=== PATIENT | female | born 1975 | race Caucasian/White ===

== ENCOUNTER → 2018-01-27 | Outpatient (CLI) | payer OTHER ==
--- NOTE | 2018-01-27 11:34 | KCIC ---
Barium esophagram History: Dysphagia for 2 to 3 weeks Comparison: None. Findings: Esophagram was performed. Overall caliber of the esophagus is within normal limits. No significant hiatal hernia was identified. No significant flow-limiting stricture was identified. There was transient incomplete relaxation of the lower esophageal sphincter, somewhat delayed passage of barium tablet through this region. Otherwise esophageal motility is within normal limits. There is scattered scattered mucosal irregularity of the esophagus. Fluoroscopy time: 1 minute 35 seconds, 46 images Impression: 1. There is some scattered mucosal irregularity of the esophagus suggestive of esophagitis. There is no significant hiatal hernia. There was incomplete relaxation of the lower esophageal sphincter. Electronically signed by: Paulie Sandoval MD (01/27/2018 11:30 AM) [facility]
== END | disposition home or self-care (01) ==
LOC: KCIC 07:40
PROVIDERS: ATTEND Internal Medicine Gastroenterology
DX: R13.10 Dysphagia, unspecified (principal)
CPT/HCPCS: 74220

== ENCOUNTER 2018-06-24 18:17 | Inpatient (IN) | payer OTHER ==
[~2018-06-24] VITALS: Ht 170.2 cm; Wt 106.2 kg
[2018-06-24] MEDS ORDERED: fentaNYL PF VIAL 100 MCG/2 ML VIAL IV ONE ×2 (19:00→23:30)
[2018-06-24] MEDS ORDERED: IV NORMAL SALINE 1000ML BAG 1,000 ML IV ONE (19:00)
[2018-06-24] MEDS ORDERED: ONDANSETRON PF 4 MG/2 ML VIAL. IV ONE (19:00)
[2018-06-24] MEDS ORDERED: DICYCLOMINE 20 MG/2 ML AMPUL. IM ONE (19:00)
[2018-06-24 19:22] LABS: BASO # 0.1 x10^3/uL (0.0-0.2); BASO % 1 % (0-3); EOS # 0.2 x10^3/uL (0.0-0.7); EOS % 2 % (0-3); HEMATOCRIT 40.7 % (36.0-47.0); HEMOGLOBIN 13.6 g/dL (12.0-15.5); LYMPH # 0.7 x10^3/uL (1.0-4.8); LYMPH % 6 % (24-48); MEAN CORPUSCULAR HEMOGLOBIN 33 pg (25-35); MEAN CORPUSCULAR HGB CONC 34 g/dL (31-37); MEAN CORPUSCULAR VOLUME 97 fL (79-100); MONO # 0.4 x10^3/uL (0.0-1.1); MONO % 4 % (0-9); NEUT # 10.7 x10^3uL (1.8-7.7); NEUT % 89 % (31-73); PLATELET COUNT 374 x10^3/uL (140-400); RED CELL DISTRIBUTION WIDTH 15.6 % (11.5-14.5); WHITE BLOOD COUNT 12.1 x10^3/uL (4.0-11.0)
--- NOTE | 2018-06-24 19:37 | PHYS DOC ---
Past Medical History Past Medical History: Migraines, Other Additional Past Medical Histor: CHRON'S,ULCERATIVE COLITIS,ALVAREZ'S ESOPHAGUS, LEAKY HEART VALVE (NEIL LAURENT APRN) Past Surgical History: Cholecystectomy, Tonsillectomy, Other Additional Past Surgical Histo: EYE SURG,LEEP (NEIL LAURENT APRN) Alcohol Use: None Drug Use: None (NEIL LAURENT APRN) Adult General Chief Complaint Chief Complaint: DIZZY/LIGHT HEADED HPI HPI 43-year-old female presents to ER with complaints of 2 day history of N/V/D and intermittent dizziness. She reports yest. she had vomiting episodes and today hasn't vomited. She reports she's had multiple episodes of diarrhea. She reports she has felt sweaty and has had chills denies checking her temperature. Patient reports she has diffuse upper and lower abdominal pain which is cramping in nature and intermittent. Patient reports she is currently on her menstrual cycle. Patient states dizziness increases with position changes. Patient denies any headache, eye pain, or tinnitus. Patient reports history of Crohn's, IBS, and Alvarez's esophagus. Patient denies any blood in her vomit or difficulty swallowing. She denies smoking/alcohol/illicit drugs. (NEIL LAURENT APRN) Review of Systems Review of Systems Constitutional: Denies fever. Reports chills and generalized fatigue Eyes: Denies change in visual acuity, redness, or eye pain [] HENT: Denies nasal congestion or sore throat [] Respiratory: Denies cough or shortness of breath [] Cardiovascular: Reports burning in chest into upper abd GI: Reports upper/mid/lower diffuse abd pain with intermittent nausea. Reports vomiting yest. denies any episodes today. Reports multiple diarrhea episodes today. Denies bloody stools : Denies dysuria or hematuria [] Musculoskeletal: Denies back pain or joint pain [] Integument: Denies rash,swelling or skin lesions. Reports felt sweaty past couple of days Neurologic: Denies headache, focal weakness or sensory changes [] All other systems were reviewed and found to be within normal limits, except as documented in this note. (NEIL LAURENT APRN) Current Medications Current Medications Current Medications Medications (Trade) Dose Ordered Sig/Sánchez Start Time Stop Time Status Last Admin Dose Admin Dicyclomine HCl (Bentyl) 20 mg 1X ONCE 06/24/18 19:00 06/24/18 19:04 DC 06/24/18 19:37 20 MG Fentanyl Citrate (Fentanyl 2ml Vial) 25 mcg 1X ONCE 06/24/18 19:00 06/24/18 19:04 DC 06/24/18 19:28 25 MCG Info (CONTRAST GIVEN -- Rx MONITORING) 1 each PRN DAILY PRN 06/24/18 20:30 06/26/18 20:29 DC Iohexol (Omnipaque 300 Mg/ml) 75 ml 1X ONCE 06/24/18 21:00 06/24/18 21:01 DC 06/24/18 20:43 75 ML Metoclopramide HCl (Reglan Vial) 10 mg 1X ONCE 06/24/18 20:15 06/24/18 20:16 DC 06/24/18 20:24 10 MG Multi-Ingredient Mouthwash/Gargle (Gi Cocktail) 20 ml 1X ONCE 06/24/18 22:15 06/24/18 22:16 DC 06/24/18 22:04 20 ML Ondansetron HCl (Zofran) 4 mg 1X ONCE 06/24/18 19:00 06/24/18 19:02 DC 06/24/18 19:31 4 MG Sodium Chloride 1,000 ml @ 1,000 mls/hr 1X ONCE 06/24/18 19:00 06/24/18 19:59 DC 06/24/18 19:21 1,000 MLS/HR (SHASHA SPAULDING DO) Allergies Allergies Allergies Coded Allergies Type Severity Reaction Last Updated Verified erythromycin base Allergy Intermediate 06/24/18 Yes nitrofurantoin Allergy Intermediate 06/24/18 Yes (SHASHA SPAULDING DO) Physical Exam Physical Exam Constitutional: Well developed, well nourished, no acute distress, non-toxic appearance. Fatigued appearance HENT: Normocephalic, atraumatic, bilateral ears normal, mucous membranes pink/ dry; no oral exudates, nose normal. [] Eyes: 3mm PERRLA, EOMI, no nystagmus, conjunctiva normal, no discharge. [] Neck: Normal range of motion, no tenderness, supple, no stridor. [] Cardiovascular: Heart rate regular rhythm, no murmur [] Lungs & Thorax: Bilateral breath sounds clear to auscultation- resp. equal/ nonlabored Abdomen: Bowel sounds normal, soft- no distention/rigidity, diffuse tenderness in all abd- no focal area, no rebound tenderness, no masses, no pulsatile masses. [] Skin: Warm, dry, no erythema, no rash. [] Back: No tenderness, no CVA tenderness. [] Extremities: No tenderness, no cyanosis, no clubbing, ROM intact, no edema. [] Neurologic: Alert and oriented X 3, normal motor function, normal sensory function, no focal deficits noted. [] Psychologic: Affect normal, judgement normal, mood normal. [] (REFFITT,NEIL Villa APRN) Current Patient Data Lab Values Laboratory Tests Test 06/24/18 18:41 06/24/18 19:11 06/24/18 20:12 Glucose (Fingerstick) 113 mg/dL (70-99) H White Blood Count 12.1 x10^3/uL (4.0-11.0) H Red Blood Count 4.20 x10^6/uL (3.50-5.40) Hemoglobin 13.6 g/dL (12.0-15.5) Hematocrit 40.7 % (36.0-47.0) Mean Corpuscular Volume 97 fL (79-100) Mean Corpuscular Hemoglobin 33 pg (25-35) Mean Corpuscular Hemoglobin Concent 34 g/dL (31-37) Red Cell Distribution Width 15.6 % (11.5-14.5) H Platelet Count 374 x10^3/uL (140-400) Neutrophils (%) (Auto) 89 % (31-73) H Lymphocytes (%) (Auto) 6 % (24-48) L Monocytes (%) (Auto) 4 % (0-9) Eosinophils (%) (Auto) 2 % (0-3) Basophils (%) (Auto) 1 % (0-3) Neutrophils # (Auto) 10.7 x10^3uL (1.8-7.7) H Lymphocytes # (Auto) 0.7 x10^3/uL (1.0-4.8) L Monocytes # (Auto) 0.4 x10^3/uL (0.0-1.1) Eosinophils # (Auto) 0.2 x10^3/uL (0.0-0.7) Basophils # (Auto) 0.1 x10^3/uL (0.0-0.2) Segmented Neutrophils % 89 % (35-66) H Band Neutrophils % 1 % (0-9) Lymphocytes % 5 % (24-48) L Monocytes % 4 % (0-10) Eosinophils % 1 % (0-5) Toxic Vacuolation Slight Platelet Estimate Adequate (ADEQUATE) Large Platelets Occ Maternal Serum HCG Beta Subunit < 1 mIU/mL (0-5) Sodium Level 138 mmol/L (136-145) Potassium Level 4.1 mmol/L (3.5-5.1) Chloride Level 105 mmol/L (98-107) Carbon Dioxide Level 22 mmol/L (21-32) Anion Gap 11 (6-14) Blood Urea Nitrogen 13 mg/dL (7-20) Creatinine 0.8 mg/dL (0.6-1.0) Estimated GFR (Cockcroft-Gault) 77.9 BUN/Creatinine Ratio 16 (6-20) Glucose Level 128 mg/dL (70-99) H Calcium Level 9.5 mg/dL (8.5-10.1) Magnesium Level 1.8 mg/dL (1.8-2.4) Total Bilirubin 0.3 mg/dL (0.2-1.0) Aspartate Amino Transferase (AST) 17 U/L (15-37) Alanine Aminotransferase (ALT) 19 U/L (14-59) Alkaline Phosphatase 96 U/L (46-116) Troponin I Quantitative < 0.017 ng/mL (0.000-0.055) Total Protein 7.8 g/dL (6.4-8.2) Albumin 3.2 g/dL (3.4-5.0) L Albumin/Globulin Ratio 0.7 (1.0-1.7) L Lipase 60 U/L (73-393) L Urine Collection Type Unknown Urine Color Yellow Urine Clarity Cloudy Urine pH 5.5 Urine Specific [place] 1.025 Urine Protein 30 mg/dL (NEG-TRACE) Urine Glucose (UA) Negative mg/dL (NEG) Urine Ketones (Stick) 15 mg/dL (NEG) Urine Blood Large (NEG) Urine Nitrite Negative (NEG) Urine Bilirubin Small (NEG) Urine Urobilinogen Dipstick 0.2 mg/dL (0.2 mg/dL) Urine Leukocyte Esterase Small (NEG) Urine RBC 1-2 /HPF (0-2) Urine WBC 5-10 /HPF (0-4) Urine Squamous Epithelial Cells Many /LPF Urine Bacteria Many /HPF (0-FEW) Urine Mucus Marked /LPF Laboratory Tests 06/24/18 19:11 Laboratory Tests 06/24/18 19:11 Microbiology 06/24/18 Urine Culture - Final, Complete 06/24/18 Urine Culture Result 1 (DEVANTE) - Final, Complete (SHASHA SPAULDING DO) EKG EKG EKG obtained 06/24/18 at [address] Spaulding Sinus rhythm Rate 89 No STEMI (REFFITT,NEIL M VP) Radiology/Procedures Radiology/Procedures PROCEDURE: CT ABD PELV W/ IV CONTRST ONLY Examination: CT ABD PELV W/ IV CONTRST ONLY History: abd pain- hx Crohn's/IBS, OMNI 300, 75ml Comparison/Correlation: None Findings: Axial images of the abdomen and pelvis were obtained following IV contrast. Sagittal and coronal reformatted images provided. Visualized lung bases are clear. Fatty infiltration at the gallbladder fossa focally is suggested with a 1.1 cm diameter low-attenuation lesion but this finding is too small to characterize. It is seen on axial image 31 of series 2 and coronal image 25 of series 4. Cholecystectomy evident. Spleen, pancreas, adrenal glands, and right kidney are normal. Left renal superior pole nonobstructive calyceal calculus measuring 0.4 cm diameter is present. Urinary bladder is unremarkable. No bowel obstruction. No inflammatory change about the cecum. Appendix is normal. No extraluminal gas. Small umbilical hernia containing omental fat. Uterus is unremarkable. L4-5 concentric disc bulge is noted. Impression: No inflammatory change, obstruction, or mass. Nonobstructive left renal calculus. Low-attenuation at the gallbladder fossa within the liver probably represents focal fatty infiltration but it is too small to characterize. Correlate with prior exams if available to assess stability. No suspicious characteristics however suspected. PQRS Compliance Statement: One or more of the following individualized dose reduction techniques were utilized for this examination: 1. Automated exposure control 2. Adjustment of the mA and/or kV according to patient size 3. Use of iterative reconstruction technique Electronically signed by: Bassam Armstrong MD (06/24/2018 9:40 PM) [facility] DICTATED and SIGNED BY: BASSAM ARMSTRONG MD DATE: 06/24/182132 (NEIL LAURENT APRN) Course & Med Decision Making Course & Med Decision Making Pertinent Labs and Imaging studies reviewed. (See chart for details) 2004: On reevaluation patient reports her abdominal cramping has improved slightly. She's had no vomiting episodes while in the ER. Patient reports she is still feeling nauseated. Discussed test results with WBCs at 12.7 with 1 band on differential. Lipase and LFTs are not elevated. Discussed plans to obtain CT for further evaluation. Will provide patient with additional dose of nausea medicine. 2149: Discussed test results and CT results with no acute findings. Patient is still complaining of burning sensation in GI tract orders placed for GI cocktail. Will reevaluate following this treatment. Patient has had no active vomiting while in the ER. On re-evaluation pt reports minimal improvement in sxs with GI cocktail. With pt 's ongoing abd pain admission was discussed- she is preferring admission. Will admit to hospitalist for further care/monitoring and consult GI with admission. (NEIL LAURENT APRN) Dragon Disclaimer Dragon Disclaimer This electronic medical record was generated, in whole or in part, using a voice recognition dictation system. (NEIL LAURENT APRN) Departure Departure Impression: Primary Impression: Intractable abdominal pain Disposition: ADMITTED INPATIENT Admitting Physician: Mary Kiran (SHASHA SPAULDING DO) Condition: STABLE Referrals: NON,STAFF (PCP) Scripts Prochlorperazine Maleate (Compazine) 10 Mg Tablet 10 MG PO Q8HRS PRN for NAUSEA for 10 Days, #30 TAB Prov: EMELY SALINAS MD 06/29/18 Attending Signature Attending Signature I have reviewed the PA/TRACK LEADER's note and plan of care. I was available for consultation as needed during the patient's visit in the emergency department. I agree with the clinical impression, plan, and disposition. (SHASHA SPAULDING DO) NEIL LAURENT APRN Jun 24, 2018 19:37 SHASHA SPAULDING DO Aug 14, 2018 13:23
[2018-06-24 19:38] LABS: CALCIUM 9.5 mg/dL (8.5-10.1); CREATININE 0.8 mg/dL (0.6-1.0); GFR 77.9; POTASSIUM 4.1 mmol/L (3.5-5.1)
[2018-06-24 19:45] LABS: ALBUMIN 3.2 g/dL (3.4-5.0); ALBUMIN/GLOBULIN RATIO 0.7 (1.0-1.7); MAGNESIUM 1.8 mg/dL (1.8-2.4); TOTAL BILIRUBIN 0.3 mg/dL (0.2-1.0); TOTAL PROTEIN 7.8 g/dL (6.4-8.2)
[2018-06-24 19:50] LABS: % BANDS 1 % (0-9); % EOS 1 % (0-5); % LYMPHS 5 % (24-48); % MONOS 4 % (0-10); % SEGS 89 % (35-66); PLT ESTIMATE ADEQUATE (ADEQUATE); TOXIC VACUOLATION SLIGHT
[2018-06-24] MEDS ORDERED: METOCLOPRAMIDE HCL 10 MG/2 ML VIAL. IV ONE (20:15)
[2018-06-24] MEDS ORDERED: CONTRAST GIVEN. MC PRN (20:30)
[2018-06-24 20:44] LABS: BILIRUBIN,URINE SMALL (NEG); CLARITY,URINE CLOUDY; COLOR,URINE YELLOW; NITRITE,URINE NEGATIVE (NEG); PH,URINE 5.5; PROTEIN,URINE 30 mg/dL (NEG-TRACE); UROBILINOGEN,URINE 0.2 mg/dL (0.2 mg/dL)
[2018-06-24 20:54] LABS: BACTERIA,URINE MANY /HPF (0-FEW); SQUAMOUS EPITHELIAL CELL,UR MANY /LPF
[2018-06-24] MEDS ORDERED: IOHEXOL 300 MG/ML 100ML VIAL. IV ONE (21:00)
--- NOTE | 2018-06-24 21:43 | RAD ---
Examination: CT ABD PELV W/ IV CONTRST ONLY History: abd pain- hx Crohn's/IBS, OMNI 300, 75ml Comparison/Correlation: None Findings: Axial images of the abdomen and pelvis were obtained following IV contrast. Sagittal and coronal reformatted images provided. Visualized lung bases are clear. Fatty infiltration at the gallbladder fossa focally is suggested with a 1.1 cm diameter low-attenuation lesion but this finding is too small to characterize. It is seen on axial image 31 of series 2 and coronal image 25 of series 4. Cholecystectomy evident. Spleen, pancreas, adrenal glands, and right kidney are normal. Left renal superior pole nonobstructive calyceal calculus measuring 0.4 cm diameter is present. Urinary bladder is unremarkable. No bowel obstruction. No inflammatory change about the cecum. Appendix is normal. No extraluminal gas. Small umbilical hernia containing omental fat. Uterus is unremarkable. L4-5 concentric disc bulge is noted. Impression: No inflammatory change, obstruction, or mass. Nonobstructive left renal calculus. Low-attenuation at the gallbladder fossa within the liver probably represents focal fatty infiltration but it is too small to characterize. Correlate with prior exams if available to assess stability. No suspicious characteristics however suspected. PQRS Compliance Statement: One or more of the following individualized dose reduction techniques were utilized for this examination: 1. Automated exposure control 2. Adjustment of the mA and/or kV according to patient size 3. Use of iterative reconstruction technique Electronically signed by: Bassam Blunt MD (06/24/2018 9:40 PM) [facility]
[2018-06-24] MEDS ORDERED: LIDO:MAALOX 1:1 20 ML SINGLE DOSE. SWSW ONE (22:15)
[2018-06-25] VITALS (7 sets, daily range): BP systolic 114–127; BP diastolic 65–79
[2018-06-25] MEDS: IV NORMAL SALINE 1000ML BAG 1,000 ML IV SCH ×3 (01:00→20:43)
[2018-06-25] MEDS ORDERED: DIPH25CA58 PO (01:58)
[2018-06-25] MEDS ORDERED: SUCR1TAB35 PO (01:58)
[2018-06-25] MEDS ORDERED: TRAZ-118 PO (01:58)
[2018-06-25] MEDS ORDERED: GABA300C18 PO (01:58)
[2018-06-25] MEDS ORDERED: RIBO100T PO (01:58)
[2018-06-25] MEDS ORDERED: AZAT50TA20 PO (01:58)
[2018-06-25] MEDS ORDERED: OMEP40CA5 PO (01:58)
[2018-06-25] MEDS ORDERED: potassium gluconate PO (01:58)
[2018-06-25] MEDS ORDERED: ELET20TA PO (01:58)
[2018-06-25] MEDS ORDERED: NORT10CA PO (01:58)
[2018-06-25] MEDS ORDERED: USTE90DI SQ (01:58)
[2018-06-25] MEDS ORDERED: ferrous sulfate PO (01:58)
[2018-06-25] MEDS ORDERED: magnesium oxide PO (01:58)
[2018-06-25] MEDS: fentaNYL PF VIAL 100 MCG/2 ML VIAL IV PRN ×6 (04:13→19:28)
--- NOTE | 2018-06-25 10:26 | EKG ---
[facility] [address] [place] [address] Test Date: 2018-06-24 Test Time: 19:10:53 Pat Name: GURWINDER RODRIGUEZ Department: Room: 562 1 Gender: F Wood Router: : 1975 Requested By: NEIL LAURENT Order Number: [id number] Reading MD: Hernandez Gong MD Measurements Intervals [place] Rate: 89 P: 39 DC: 164 QRS: 49 QRSD: 76 T: 31 QT: 342 QTc: 422 Interpretive Statements SINUS RHYTHM Electronically Signed On 06-28-2018 10:20:53 BALLAST REGULATOR OPERATOR by Hernandez Gong MD
--- NOTE | 2018-06-25 10:34 | PDOC1 ---
History and Physical Date of Admission Date of Admission DATE: 06/25/18 TIME: 10:33 Identification/Chief Complaint Chief Complaint seen in ER with complaints of 2 day history of N/V/D and intermittent dizziness. she had vomiting episodes , reports she's had multiple episodes of diarrhea. She reports chills Patient reports she has diffuse upper and lower abdominal pain which is cramping in nature and intermittent. Patient reports history of Crohn's, IBS, and Alvarez's esophagus. Past Medical History Past Medical History Past Medical History Past Medical History: Migraines, Other Additional Past Medical Histor: CHRON'S,ULCERATIVE COLITIS,ALVAREZ'S ESOPHAGUS, LEAKY HEART VALVE Past Surgical History: Cholecystectomy, Tonsillectomy, Other Additional Past Surgical Histo: EYE SURG,LEEP Alcohol Use: None Drug Use: None FAMILY HX OBESITY Past Surgical History Past Surgical History: Other Family History Family History: Coronary Artery Disease, High Cholestrol Social History Smoke: No ALCOHOL: none Drugs: None Current Medications Current Medications Current Medications Sodium Chloride 1,000 ml @ 1,000 mls/hr 1X ONCE IV Last administered on at 19:21; Start 06/24/18 at 19:00; Stop 06/24/18 at 19:59; Status DC Ondansetron HCl (Zofran) 4 mg 1X ONCE IV Last administered on 06/24/18at 19:31; Start 06/24/18 at 19:00; Stop 06/24/18 at 19:02; Status DC Fentanyl Citrate (Fentanyl 2ml Vial) 25 mcg 1X ONCE IV Last administered on 06/24/18at 19:28; Start 06/24/18 at 19:00; Stop 06/24/18 at 19:04; Status DC Dicyclomine HCl (Bentyl) 20 mg 1X ONCE IM Last administered on 06/24/18at 19:37 ; Start 06/24/18 at 19:00; Stop 06/24/18 at 19:04; Status DC Metoclopramide HCl (Reglan Vial) 10 mg 1X ONCE IV Last administered on at 20:24; Start 06/24/18 at 20:15; Stop 06/24/18 at 20:16; Status DC Iohexol (Omnipaque 300 Mg/ml) 75 ml 1X ONCE IV Last administered on 06/24/18at 20:43; Start 06/24/18 at 21:00; Stop 06/24/18 at 21:01; Status DC Info (CONTRAST GIVEN -- Rx MONITORING) 1 each PRN DAILY PRN MC SEE COMMENTS; Start 06/24/18 at 20:30; Stop 06/26/18 at 20:29 Multi-Ingredient Mouthwash/Gargle (Gi Cocktail) 20 ml 1X ONCE SWSW Last administered on 06/24/18at 22:04; Start 06/24/18 at 22:15; Stop 06/24/18 at 22:16; Status DC Fentanyl Citrate (Fentanyl 2ml Vial) 50 mcg 1X ONCE IV Last administered on 06/24/18at 23:39; Start 06/24/18 at 23:30; Stop 06/24/18 at 23:31; Status DC Ondansetron HCl (Zofran) 4 mg PRN Q8HRS PRN IV NAUSEA/VOMITING 1ST CHOICE; Start 06/25/18 at 00:15; Stop 06/26/18 at 00:14 Fentanyl Citrate (Fentanyl 2ml Vial) 50 mcg PRN Q2HR PRN IV SEVERE PAIN Last administered on 06/25/18at 10:03; Start 06/25/18 at 00:15; Stop 06/26/18 at 00:14 Sodium Chloride 1,000 ml @ 100 mls/hr Q10H IV Last administered on 06/25/18at 01 :00; Start 06/25/18 at 00:30; Stop 06/26/18 at 00:29 Active Scripts Active Reported Riboflavin 100 Mg Tablet 100 Mg PO DAILY [magnesium oxide] 200 Mg PO DAILY [potassium gluconate] 550 Mg PO DAILY Benadryl (Diphenhydramine Hcl) 25 Mg Capsule 100 Mg PO QHS Imuran (Azathioprine) 50 Mg Tablet 100 Mg PO BID Stelara (Ustekinumab) 90 Mg/1 Ml Disp.syrin 90 Mg SQ Q6WKS Carafate (Sucralfate) 1 Gm Tablet 1 Tab PO TIDAC Nortriptyline Hcl 10 Mg Capsule 2 Cap PO QHS Trazodone Hcl 50 Mg Tablet 50 Mg PO HS Omeprazole 40 Mg Capsule.dr 40 Mg PO DAILY [ferrous sulfate] 65 Mg PO DAILY Relpax (Eletriptan Hbr) 20 Mg Tablet 20 Mg PO PRN PRN Gabapentin (Gabapentin) 300 Mg Capsule 300 Mg PO Q8HRS Allergies Allergies: Coded Allergies: erythromycin base (Verified Allergy, Intermediate, 06/24/18) nitrofurantoin (Verified Allergy, Intermediate, 06/24/18) ROS Review of System Review of Systems Review of Systems Constitutional: reports chills [] Eyes: Denies change in visual acuity, redness, or eye pain [] HENT: Denies nasal congestion or sore throat [] Respiratory: Denies cough or shortness of breath [] Cardiovascular: No additional information not addressed in HPI [] GI: abdominal pain, nausea, vomiting BETTER TODAY , NO bloody stools or diarrhea [] : Denies dysuria or hematuria [] Musculoskeletal: Denies back pain or joint pain [] Integument: Denies rash or skin lesions [] Neurologic: Denies headache, focal weakness or sensory changes [] Endocrine: Denies polyuria or polydipsia [] 14 PT systems were reviewed and found to be within normal limits, except as documented . General: YES: Chills, Fatigue Eyes: No Blurry vision, No Decreased vision, No Double vision, No Dry eyes, No Excessive tearing, No Eye Pain, No Itchy Eyes, No Loss of vision, No Photophobia , No Scotomata, No Uses contacts, No Uses glasses, No Other ENDOCRINE: No: Breast Changes, Galactorrhea, Hair Pattern Changes, Hot Flashes , Malaise/lethargy, Mood Swings, Palpitations, Polydipsia/polyuria, Skin Changes , Temperature Intolerance, Unexpected Weight Changes, Other Gastrointestinal: Yes Nausea, Yes Vomiting, Yes Other (gerd symptoms) Physical Exam Physical Exam Physical Exam Physical Exam Constitutional: Well developed, well nourished, no acute distress, non-toxic appearance. [] HENT: Normocephalic, atraumatic, bilateral external ears normal, oropharynx moist, no oral exudates, nose normal. [] Eyes: PERRLA, EOMI, conjunctiva normal, no discharge. [] Neck: Normal range of motion, no tenderness, supple, no stridor. [] Cardiovascular:Heart rate regular rhythm, no murmur [] Lungs & Thorax: Bilateral breath sounds clear to auscultation [] Abdomen: Bowel sounds normal, soft, no tenderness, no masses, no pulsatile masses. [] Skin: Warm, dry, no erythema, no rash. [] Back: No tenderness, no CVA tenderness. [] Extremities: No tenderness, no cyanosis, no clubbing, ROM intact, no edema. [] Neurologic: Alert and oriented X 3, normal motor function, normal sensory function, no focal deficits noted. [] Psychologic: Affect normal, judgement normal, mood normal. [] General: Oriented X3, Cooperative Lungs: Clear to auscultation Breasts: Not examined Abdomen: Soft Neuro: Cranial nerves 3-12 NL Vitals Vitals Vital Signs Date Time Temp Pulse Resp B/P (MAP) Pulse Ox O2 Delivery O2 Flow Rate FiO2 06/25/18 10:03 18 96 Room Air 06/25/18 07:00 98.3 87 114/72 (86) 98.3 Labs Labs Laboratory Tests Test 06/24/18 18:41 06/24/18 19:11 06/24/18 20:12 Glucose (Fingerstick) 113 mg/dL (70-99) White Blood Count 12.1 x10^3/uL (4.0-11.0) Red Blood Count 4.20 x10^6/uL (3.50-5.40) Hemoglobin 13.6 g/dL (12.0-15.5) Hematocrit 40.7 % (36.0-47.0) Mean Corpuscular Volume 97 fL (79-100) Mean Corpuscular Hemoglobin 33 pg (25-35) Mean Corpuscular Hemoglobin Concent 34 g/dL (31-37) Red Cell Distribution Width 15.6 % (11.5-14.5) Platelet Count 374 x10^3/uL (140-400) Neutrophils (%) (Auto) 89 % (31-73) Lymphocytes (%) (Auto) 6 % (24-48) Monocytes (%) (Auto) 4 % (0-9) Eosinophils (%) (Auto) 2 % (0-3) Basophils (%) (Auto) 1 % (0-3) Neutrophils # (Auto) 10.7 x10^3uL (1.8-7.7) Lymphocytes # (Auto) 0.7 x10^3/uL (1.0-4.8) Monocytes # (Auto) 0.4 x10^3/uL (0.0-1.1) Eosinophils # (Auto) 0.2 x10^3/uL (0.0-0.7) Basophils # (Auto) 0.1 x10^3/uL (0.0-0.2) Segmented Neutrophils % 89 % (35-66) Band Neutrophils % 1 % (0-9) Lymphocytes % 5 % (24-48) Monocytes % 4 % (0-10) Eosinophils % 1 % (0-5) Toxic Vacuolation Slight Platelet Estimate Adequate (ADEQUATE) Large Platelets Occ Maternal Serum HCG Beta Subunit < 1 mIU/mL (0-5) Sodium Level 138 mmol/L (136-145) Potassium Level 4.1 mmol/L (3.5-5.1) Chloride Level 105 mmol/L (98-107) Carbon Dioxide Level 22 mmol/L (21-32) Anion Gap 11 (6-14) Blood Urea Nitrogen 13 mg/dL (7-20) Creatinine 0.8 mg/dL (0.6-1.0) Estimated GFR (Cockcroft-Gault) 77.9 BUN/Creatinine Ratio 16 (6-20) Glucose Level 128 mg/dL (70-99) Calcium Level 9.5 mg/dL (8.5-10.1) Magnesium Level 1.8 mg/dL (1.8-2.4) Total Bilirubin 0.3 mg/dL (0.2-1.0) Aspartate Amino Transf (AST/SGOT) 17 U/L (15-37) Alanine Aminotransferase (ALT/SGPT) 19 U/L (14-59) Alkaline Phosphatase 96 U/L (46-116) Troponin I Quantitative < 0.017 ng/mL (0.000-0.055) Total Protein 7.8 g/dL (6.4-8.2) Albumin 3.2 g/dL (3.4-5.0) Albumin/Globulin Ratio 0.7 (1.0-1.7) Lipase 60 U/L (73-393) Urine Collection Type Unknown Urine Color Yellow Urine Clarity Cloudy Urine pH 5.5 Urine Specific [place] 1.025 Urine Protein 30 mg/dL (NEG-TRACE) Urine Glucose (UA) Negative mg/dL (NEG) Urine Ketones (Stick) 15 mg/dL (NEG) Urine Blood Large (NEG) Urine Nitrite Negative (NEG) Urine Bilirubin Small (NEG) Urine Urobilinogen Dipstick 0.2 mg/dL (0.2 mg/dL) Urine Leukocyte Esterase Small (NEG) Urine RBC 1-2 /HPF (0-2) Urine WBC 5-10 /HPF (0-4) Urine Squamous Epithelial Cells Many /LPF Urine Bacteria Many /HPF (0-FEW) Urine Mucus Marked /LPF Laboratory Tests Test 06/24/18 18:41 06/24/18 19:11 06/24/18 20:12 Glucose (Fingerstick) 113 mg/dL (70-99) White Blood Count 12.1 x10^3/uL (4.0-11.0) Red Blood Count 4.20 x10^6/uL (3.50-5.40) Hemoglobin 13.6 g/dL (12.0-15.5) Hematocrit 40.7 % (36.0-47.0) Mean Corpuscular Volume 97 fL (79-100) Mean Corpuscular Hemoglobin 33 pg (25-35) Mean Corpuscular Hemoglobin Concent 34 g/dL (31-37) Red Cell Distribution Width 15.6 % (11.5-14.5) Platelet Count 374 x10^3/uL (140-400) Neutrophils (%) (Auto) 89 % (31-73) Lymphocytes (%) (Auto) 6 % (24-48) Monocytes (%) (Auto) 4 % (0-9) Eosinophils (%) (Auto) 2 % (0-3) Basophils (%) (Auto) 1 % (0-3) Neutrophils # (Auto) 10.7 x10^3uL (1.8-7.7) Lymphocytes # (Auto) 0.7 x10^3/uL (1.0-4.8) Monocytes # (Auto) 0.4 x10^3/uL (0.0-1.1) Eosinophils # (Auto) 0.2 x10^3/uL (0.0-0.7) Basophils # (Auto) 0.1 x10^3/uL (0.0-0.2) Segmented Neutrophils % 89 % (35-66) Band Neutrophils % 1 % (0-9) Lymphocytes % 5 % (24-48) Monocytes % 4 % (0-10) Eosinophils % 1 % (0-5) Toxic Vacuolation Slight Platelet Estimate Adequate (ADEQUATE) Large Platelets Occ Maternal Serum HCG Beta Subunit < 1 mIU/mL (0-5) Sodium Level 138 mmol/L (136-145) Potassium Level 4.1 mmol/L (3.5-5.1) Chloride Level 105 mmol/L (98-107) Carbon Dioxide Level 22 mmol/L (21-32) Anion Gap 11 (6-14) Blood Urea Nitrogen 13 mg/dL (7-20) Creatinine 0.8 mg/dL (0.6-1.0) Estimated GFR (Cockcroft-Gault) 77.9 BUN/Creatinine Ratio 16 (6-20) Glucose Level 128 mg/dL (70-99) Calcium Level 9.5 mg/dL (8.5-10.1) Magnesium Level 1.8 mg/dL (1.8-2.4) Total Bilirubin 0.3 mg/dL (0.2-1.0) Aspartate Amino Transf (AST/SGOT) 17 U/L (15-37) Alanine Aminotransferase (ALT/SGPT) 19 U/L (14-59) Alkaline Phosphatase 96 U/L (46-116) Troponin I Quantitative < 0.017 ng/mL (0.000-0.055) Total Protein 7.8 g/dL (6.4-8.2) Albumin 3.2 g/dL (3.4-5.0) Albumin/Globulin Ratio 0.7 (1.0-1.7) Lipase 60 U/L (73-393) Urine Collection Type Unknown Urine Color Yellow Urine Clarity Cloudy Urine pH 5.5 Urine Specific [place] 1.025 Urine Protein 30 mg/dL (NEG-TRACE) Urine Glucose (UA) Negative mg/dL (NEG) Urine Ketones (Stick) 15 mg/dL (NEG) Urine Blood Large (NEG) Urine Nitrite Negative (NEG) Urine Bilirubin Small (NEG) Urine Urobilinogen Dipstick 0.2 mg/dL (0.2 mg/dL) Urine Leukocyte Esterase Small (NEG) Urine RBC 1-2 /HPF (0-2) Urine WBC 5-10 /HPF (0-4) Urine Squamous Epithelial Cells Many /LPF Urine Bacteria Many /HPF (0-FEW) Urine Mucus Marked /LPF Images Images Barium esophagram History: Dysphagia for 2 to 3 weeks Comparison: None. Findings: Esophagram was performed. Overall caliber of the esophagus is within normal limits. No significant hiatal hernia was identified. No significant flow-limiting stricture was identified. There was transient incomplete relaxation of the lower esophageal sphincter, somewhat delayed passage of barium tablet through this region. Otherwise esophageal motility is within normal limits. There is scattered scattered mucosal irregularity of the esophagus. Fluoroscopy time: 1 minute 35 seconds, 46 images Impression: 1. There is some scattered mucosal irregularity of the esophagus suggestive of esophagitis. There is no significant hiatal hernia. There was incomplete relaxation of the lower esophageal sphincter. Electronically signed by: Vasyl Clemons MD (01/27/2018 11:30 AM) [id number] DICTATED and SIGNED BY: VASYL CLEMONS MD DATE: 01/27/18 1126 PROCEDURE: CT ABD PELV W/ IV CONTRST ONLY Examination: CT ABD PELV W/ IV CONTRST ONLY History: abd pain- hx Crohn's/IBS, OMNI 300, 75ml Comparison/Correlation: None Findings: Axial images of the abdomen and pelvis were obtained following IV contrast. Sagittal and coronal reformatted images provided. Visualized lung bases are clear. Fatty infiltration at the gallbladder fossa focally is suggested with a 1.1 cm diameter low-attenuation lesion but this finding is too small to characterize. It is seen on axial image 31 of series 2 and coronal image 25 of series 4. Cholecystectomy evident. Spleen, pancreas, adrenal glands, and right kidney are normal. Left renal superior pole nonobstructive calyceal calculus measuring 0.4 cm diameter is present. Urinary bladder is unremarkable. No bowel obstruction. No inflammatory change about the cecum. Appendix is normal. No extraluminal gas. Small umbilical hernia containing omental fat. Uterus is unremarkable. L4-5 concentric disc bulge is noted. Impression: No inflammatory change, obstruction, or mass. Nonobstructive left renal calculus. Low-attenuation at the gallbladder fossa within the liver probably represents focal fatty infiltration but it is too small to characterize. Correlate with prior exams if available to assess stability. No suspicious characteristics however suspected. PQRS Compliance Statement: VTE Prophylaxis Ordered VTE Prophylaxis Devices: No VTE Pharmacological Prophylaxi: Contraindicated Assessment/Plan Assessment/Plan impression 1. intractable nausea 2. abdominal,esophageal discomfort hx mucosal irregularity of the esophagus suggestive of esophagitis. There is no significant hiatal hernia. There was incomplete relaxation of the lower esophageal sphincter. by ugi barium swallow 3. possible uti plan iv fluid support iv protonix iv zofran 4 mg q 4 hrs prn GI consult iv rocephin emperic for possible uti CEDRIC SCHMIDT MD Jun 25, 2018 10:34
[2018-06-25] MEDS: cefTRIAXone IV Push 1 GM VIAL. IVP SCH (11:05)
[2018-06-25] MEDS: ONDANSETRON PF 4 MG/2 ML VIAL. IV PRN ×2 (11:05→18:27)
[2018-06-25] MEDS: LACTOBACILLUS RHAMNOSUS GG 1 CAPSULE. PO SCH (20:43)
[2018-06-26] MEDS: ACETAMINOPHEN 325 MG TABLET. PO PRN ×2 (00:07→08:50)
[2018-06-26 03:59] VITALS: BP 102/57
[2018-06-26] MEDS: ONDANSETRON PF 4 MG/2 ML VIAL. IV PRN ×2 (04:40→12:47)
[2018-06-26 05:07] LABS: BASO # 0.1 x10^3/uL (0.0-0.2); BASO % 1 % (0-3); EOS # 0.3 x10^3/uL (0.0-0.7); EOS % 3 % (0-3); HEMATOCRIT 37.8 % (36.0-47.0); HEMOGLOBIN 12.6 g/dL (12.0-15.5); LYMPH # 2.6 x10^3/uL (1.0-4.8); LYMPH % 27 % (24-48); MEAN CORPUSCULAR HEMOGLOBIN 33 pg (25-35); MEAN CORPUSCULAR HGB CONC 33 g/dL (31-37); MEAN CORPUSCULAR VOLUME 97 fL (79-100); MONO # 0.6 x10^3/uL (0.0-1.1); MONO % 6 % (0-9); NEUT % 63 % (31-73); PLATELET COUNT 314 x10^3/uL (140-400); RED BLOOD COUNT 3.88 x10^6/uL (3.50-5.40); WHITE BLOOD COUNT 9.5 x10^3/uL (4.0-11.0)
[2018-06-26 05:45] LABS: ALBUMIN/GLOBULIN RATIO 0.8 (1.0-1.7); CALCIUM 9.2 mg/dL (8.5-10.1); CREATININE 0.8 mg/dL (0.6-1.0); GFR 77.9; POTASSIUM 4.1 mmol/L (3.5-5.1); TOTAL BILIRUBIN 0.3 mg/dL (0.2-1.0); TOTAL PROTEIN 6.6 g/dL (6.4-8.2)
[2018-06-26 07:18] VITALS: BP 91/58
[2018-06-26] MEDS: LACTOBACILLUS RHAMNOSUS GG 1 CAPSULE. PO SCH ×2 (08:50→21:13)
[2018-06-26] MEDS: PANTOPRAZOLE IV PUSH 40 MG VIAL. IVP SCH (08:51)
[2018-06-26 11:00] VITALS: BP 127/77
--- NOTE | 2018-06-26 11:24 | PDOC ---
PROGRESS NOTES History of Present Illness History of Present Illness Assessment/Plan Assessment/Plan impression 1. intractable nausea 2. abdominal,esophageal discomfort hx mucosal irregularity of the esophagus suggestive of esophagitis. There is no significant hiatal hernia. There was incomplete relaxation of the lower esophageal sphincter. by ugi barium swallow 3. possible uti 4. Alvarez's esophagus 5. inflammatory bowel disease, 6. NAFLD 06/26 still having esophageal symptoms, trying toast for dinner plan iv fluid support iv protonix iv zofran 4 mg q 4 hrs prn GI consult iv rocephin emperic for possible uti Antiemetics: Zofran/promethazine. dvt prophylaxis Vitals Vitals Vital Signs Date Time Temp Pulse Resp B/P (MAP) Pulse Ox O2 Delivery O2 Flow Rate FiO2 06/26/18 11:00 97.9 76 18 127/77 (94) 98 Room Air 97.9 Physical Exam General: Oriented X3, Cooperative, mild distress Heart: Regular rate, Normal S1, Normal S2 Lungs: Clear Abdomen: Normal bowel sounds, Soft Extremities: No cyanosis, No edema Skin: No significant lesion Labs LABS Laboratory Tests Test 06/25/18 16:35 06/26/18 04:25 Lipase 331 U/L (73-393) White Blood Count 9.5 x10^3/uL (4.0-11.0) Red Blood Count 3.88 x10^6/uL (3.50-5.40) Hemoglobin 12.6 g/dL (12.0-15.5) Hematocrit 37.8 % (36.0-47.0) Mean Corpuscular Volume 97 fL (79-100) Mean Corpuscular Hemoglobin 33 pg (25-35) Mean Corpuscular Hemoglobin Concent 33 g/dL (31-37) Red Cell Distribution Width 15.0 % (11.5-14.5) Platelet Count 314 x10^3/uL (140-400) Neutrophils (%) (Auto) 63 % (31-73) Lymphocytes (%) (Auto) 27 % (24-48) Monocytes (%) (Auto) 6 % (0-9) Eosinophils (%) (Auto) 3 % (0-3) Basophils (%) (Auto) 1 % (0-3) Neutrophils # (Auto) 6.0 x10^3uL (1.8-7.7) Lymphocytes # (Auto) 2.6 x10^3/uL (1.0-4.8) Monocytes # (Auto) 0.6 x10^3/uL (0.0-1.1) Eosinophils # (Auto) 0.3 x10^3/uL (0.0-0.7) Basophils # (Auto) 0.1 x10^3/uL (0.0-0.2) Sodium Level 141 mmol/L (136-145) Potassium Level 4.1 mmol/L (3.5-5.1) Chloride Level 105 mmol/L (98-107) Carbon Dioxide Level 25 mmol/L (21-32) Anion Gap 11 (6-14) Blood Urea Nitrogen 7 mg/dL (7-20) Creatinine 0.8 mg/dL (0.6-1.0) Estimated GFR (Cockcroft-Gault) 77.9 BUN/Creatinine Ratio 9 (6-20) Glucose Level 85 mg/dL (70-99) Calcium Level 9.2 mg/dL (8.5-10.1) Total Bilirubin 0.3 mg/dL (0.2-1.0) Aspartate Amino Transf (AST/SGOT) 18 U/L (15-37) Alanine Aminotransferase (ALT/SGPT) 19 U/L (14-59) Alkaline Phosphatase 87 U/L (46-116) Total Protein 6.6 g/dL (6.4-8.2) Albumin 3.0 g/dL (3.4-5.0) Albumin/Globulin Ratio 0.8 (1.0-1.7) Review of Systems Review of Systems Identification/Chief Complaint Chief Complaint seen in ER with complaints of 2 day history of N/V/D and intermittent dizziness. she had vomiting episodes , reports she's had multiple episodes of diarrhea. She reports chills Patient reports she has diffuse upper and lower abdominal pain which is cramping in nature and intermittent. Patient reports history of Crohn's, IBS, and Alvarez's esophagus. Past Medical History Past Medical History Past Medical History Past Medical History: Migraines, Other Additional Past Medical Histor: CHRON'S,ULCERATIVE COLITIS,ALVAREZ'S ESOPHAGUS, LEAKY HEART VALVE Past Surgical History: Cholecystectomy, Tonsillectomy, Other Additional Past Surgical Histo: EYE SURG,LEEP Alcohol Use: None Drug Use: None Comment Review of Relevant I have reviewed the following items eb (where applicable) has been applied. Labs Laboratory Tests Test 06/24/18 18:41 06/24/18 19:11 06/24/18 20:12 06/25/18 01:10 Glucose (Fingerstick) 113 mg/dL (70-99) White Blood Count 12.1 x10^3/uL (4.0-11.0) Red Blood Count 4.20 x10^6/uL (3.50-5.40) Hemoglobin 13.6 g/dL (12.0-15.5) Hematocrit 40.7 % (36.0-47.0) Mean Corpuscular Volume 97 fL (79-100) Mean Corpuscular Hemoglobin 33 pg (25-35) Mean Corpuscular Hemoglobin Concent 34 g/dL (31-37) Red Cell Distribution Width 15.6 % (11.5-14.5) Platelet Count 374 x10^3/uL (140-400) Neutrophils (%) (Auto) 89 % (31-73) Lymphocytes (%) (Auto) 6 % (24-48) Monocytes (%) (Auto) 4 % (0-9) Eosinophils (%) (Auto) 2 % (0-3) Basophils (%) (Auto) 1 % (0-3) Neutrophils # (Auto) 10.7 x10^3uL (1.8-7.7) Lymphocytes # (Auto) 0.7 x10^3/uL (1.0-4.8) Monocytes # (Auto) 0.4 x10^3/uL (0.0-1.1) Eosinophils # (Auto) 0.2 x10^3/uL (0.0-0.7) Basophils # (Auto) 0.1 x10^3/uL (0.0-0.2) Segmented Neutrophils % 89 % (35-66) Band Neutrophils % 1 % (0-9) Lymphocytes % 5 % (24-48) Monocytes % 4 % (0-10) Eosinophils % 1 % (0-5) Toxic Vacuolation Slight Platelet Estimate Adequate (ADEQUATE) Large Platelets Occ Maternal Serum HCG Beta Subunit < 1 mIU/mL (0-5) Sodium Level 138 mmol/L (136-145) Potassium Level 4.1 mmol/L (3.5-5.1) Chloride Level 105 mmol/L (98-107) Carbon Dioxide Level 22 mmol/L (21-32) Anion Gap 11 (6-14) Blood Urea Nitrogen 13 mg/dL (7-20) Creatinine 0.8 mg/dL (0.6-1.0) Estimated GFR (Cockcroft-Gault) 77.9 BUN/Creatinine Ratio 16 (6-20) Glucose Level 128 mg/dL (70-99) Calcium Level 9.5 mg/dL (8.5-10.1) Magnesium Level 1.8 mg/dL (1.8-2.4) Total Bilirubin 0.3 mg/dL (0.2-1.0) Aspartate Amino Transf (AST/SGOT) 17 U/L (15-37) Alanine Aminotransferase (ALT/SGPT) 19 U/L (14-59) Alkaline Phosphatase 96 U/L (46-116) Troponin I Quantitative < 0.017 ng/mL (0.000-0.055) Total Protein 7.8 g/dL (6.4-8.2) Albumin 3.2 g/dL (3.4-5.0) Albumin/Globulin Ratio 0.7 (1.0-1.7) Lipase 60 U/L (73-393) Urine Collection Type Unknown Urine Color Yellow Urine Clarity Cloudy Urine pH 5.5 Urine Specific Scheller 1.025 Urine Protein 30 mg/dL (NEG-TRACE) Urine Glucose (UA) Negative mg/dL (NEG) Urine Ketones (Stick) 15 mg/dL (NEG) Urine Blood Large (NEG) Urine Nitrite Negative (NEG) Urine Bilirubin Small (NEG) Urine Urobilinogen Dipstick 0.2 mg/dL (0.2 mg/dL) Urine Leukocyte Esterase Small (NEG) Urine RBC 1-2 /HPF (0-2) Urine WBC 5-10 /HPF (0-4) Urine Squamous Epithelial Cells Many /LPF Urine Bacteria Many /HPF (0-FEW) Urine Mucus Marked /LPF Clostridium difficile Toxin B Gene Negative (Negative) Test 06/25/18 16:35 06/26/18 04:25 Lipase 331 U/L (73-393) White Blood Count 9.5 x10^3/uL (4.0-11.0) Red Blood Count 3.88 x10^6/uL (3.50-5.40) Hemoglobin 12.6 g/dL (12.0-15.5) Hematocrit 37.8 % (36.0-47.0) Mean Corpuscular Volume 97 fL (79-100) Mean Corpuscular Hemoglobin 33 pg (25-35) Mean Corpuscular Hemoglobin Concent 33 g/dL (31-37) Red Cell Distribution Width 15.0 % (11.5-14.5) Platelet Count 314 x10^3/uL (140-400) Neutrophils (%) (Auto) 63 % (31-73) Lymphocytes (%) (Auto) 27 % (24-48) Monocytes (%) (Auto) 6 % (0-9) Eosinophils (%) (Auto) 3 % (0-3) Basophils (%) (Auto) 1 % (0-3) Neutrophils # (Auto) 6.0 x10^3uL (1.8-7.7) Lymphocytes # (Auto) 2.6 x10^3/uL (1.0-4.8) Monocytes # (Auto) 0.6 x10^3/uL (0.0-1.1) Eosinophils # (Auto) 0.3 x10^3/uL (0.0-0.7) Basophils # (Auto) 0.1 x10^3/uL (0.0-0.2) Sodium Level 141 mmol/L (136-145) Potassium Level 4.1 mmol/L (3.5-5.1) Chloride Level 105 mmol/L (98-107) Carbon Dioxide Level 25 mmol/L (21-32) Anion Gap 11 (6-14) Blood Urea Nitrogen 7 mg/dL (7-20) Creatinine 0.8 mg/dL (0.6-1.0) Estimated GFR (Cockcroft-Gault) 77.9 BUN/Creatinine Ratio 9 (6-20) Glucose Level 85 mg/dL (70-99) Calcium Level 9.2 mg/dL (8.5-10.1) Total Bilirubin 0.3 mg/dL (0.2-1.0) Aspartate Amino Transf (AST/SGOT) 18 U/L (15-37) Alanine Aminotransferase (ALT/SGPT) 19 U/L (14-59) Alkaline Phosphatase 87 U/L (46-116) Total Protein 6.6 g/dL (6.4-8.2) Albumin 3.0 g/dL (3.4-5.0) Albumin/Globulin Ratio 0.8 (1.0-1.7) Laboratory Tests Test 06/25/18 16:35 06/26/18 04:25 Lipase 331 U/L (73-393) White Blood Count 9.5 x10^3/uL (4.0-11.0) Red Blood Count 3.88 x10^6/uL (3.50-5.40) Hemoglobin 12.6 g/dL (12.0-15.5) Hematocrit 37.8 % (36.0-47.0) Mean Corpuscular Volume 97 fL (79-100) Mean Corpuscular Hemoglobin 33 pg (25-35) Mean Corpuscular Hemoglobin Concent 33 g/dL (31-37) Red Cell Distribution Width 15.0 % (11.5-14.5) Platelet Count 314 x10^3/uL (140-400) Neutrophils (%) (Auto) 63 % (31-73) Lymphocytes (%) (Auto) 27 % (24-48) Monocytes (%) (Auto) 6 % (0-9) Eosinophils (%) (Auto) 3 % (0-3) Basophils (%) (Auto) 1 % (0-3) Neutrophils # (Auto) 6.0 x10^3uL (1.8-7.7) Lymphocytes # (Auto) 2.6 x10^3/uL (1.0-4.8) Monocytes # (Auto) 0.6 x10^3/uL (0.0-1.1) Eosinophils # (Auto) 0.3 x10^3/uL (0.0-0.7) Basophils # (Auto) 0.1 x10^3/uL (0.0-0.2) Sodium Level 141 mmol/L (136-145) Potassium Level 4.1 mmol/L (3.5-5.1) Chloride Level 105 mmol/L (98-107) Carbon Dioxide Level 25 mmol/L (21-32) Anion Gap 11 (6-14) Blood Urea Nitrogen 7 mg/dL (7-20) Creatinine 0.8 mg/dL (0.6-1.0) Estimated GFR (Cockcroft-Gault) 77.9 BUN/Creatinine Ratio 9 (6-20) Glucose Level 85 mg/dL (70-99) Calcium Level 9.2 mg/dL (8.5-10.1) Total Bilirubin 0.3 mg/dL (0.2-1.0) Aspartate Amino Transf (AST/SGOT) 18 U/L (15-37) Alanine Aminotransferase (ALT/SGPT) 19 U/L (14-59) Alkaline Phosphatase 87 U/L (46-116) Total Protein 6.6 g/dL (6.4-8.2) Albumin 3.0 g/dL (3.4-5.0) Albumin/Globulin Ratio 0.8 (1.0-1.7) Medications Current Medications Sodium Chloride 1,000 ml @ 1,000 mls/hr 1X ONCE IV Last administered on at 19:21; Start 06/24/18 at 19:00; Stop 06/24/18 at 19:59; Status DC Ondansetron HCl (Zofran) 4 mg 1X ONCE IV Last administered on 06/24/18at 19:31; Start 06/24/18 at 19:00; Stop 06/24/18 at 19:02; Status DC Fentanyl Citrate (Fentanyl 2ml Vial) 25 mcg 1X ONCE IV Last administered on 06/24/18at 19:28; Start 06/24/18 at 19:00; Stop 06/24/18 at 19:04; Status DC Dicyclomine HCl (Bentyl) 20 mg 1X ONCE IM Last administered on 06/24/18at 19:37 ; Start 06/24/18 at 19:00; Stop 06/24/18 at 19:04; Status DC Metoclopramide HCl (Reglan Vial) 10 mg 1X ONCE IV Last administered on at 20:24; Start 06/24/18 at 20:15; Stop 06/24/18 at 20:16; Status DC Iohexol (Omnipaque 300 Mg/ml) 75 ml 1X ONCE IV Last administered on 06/24/18at 20:43; Start 06/24/18 at 21:00; Stop 06/24/18 at 21:01; Status DC Info (CONTRAST GIVEN -- Rx MONITORING) 1 each PRN DAILY PRN MC SEE COMMENTS; Start 06/24/18 at 20:30; Stop 06/26/18 at 20:29 Multi-Ingredient Mouthwash/Gargle (Gi Cocktail) 20 ml 1X ONCE SWSW Last administered on 06/24/18 22:04; Start 06/24/18 at 22:15; Stop 06/24/18 at 22:16; Status DC Fentanyl Citrate (Fentanyl 2ml Vial) 50 mcg 1X ONCE IV Last administered on 23:39; Start 06/24/18 at 23:30; Stop 06/24/18 at 23:31; Status DC Ondansetron HCl (Zofran) 4 mg PRN Q8HRS PRN IV NAUSEA/VOMITING 1ST CHOICE Last administered on 06/25/18 18:27; Start 06/25/18 at 00:15; Stop 06/26/18 at 00:14; Status DC Fentanyl Citrate (Fentanyl 2ml Vial) 50 mcg PRN Q2HR PRN IV SEVERE PAIN Last administered on 06/25/18 19:28; Start 06/25/18 at 00:15; Stop 06/26/18 at 00:14; Status DC Sodium Chloride 1,000 ml @ 100 mls/hr Q10H IV Last administered on 06/25/18 20 :43; Start 06/25/18 at 00:30; Stop 06/26/18 at 00:29; Status DC Pantoprazole Sodium (PROTONIX VIAL for IV PUSH) 40 mg DAILYAC IVP Last administered on 06/26/18 08:51; Start 06/26/18 at 07:30 Ceftriaxone Sodium (Rocephin) 1 gm Q24H IVP Last administered on 06/25/18 11:05 ; Start 06/25/18 at 11:00 Lactobacillus Rhamnosus (Culturelle) 1 cap BID PO Last administered on 08:50; Start 06/25/18 at 21:00 Acetaminophen (Tylenol) 650 mg PRN Q6HRS PRN PO HEADACHE Last administered on 08:50; Start 06/25/18 at 23:45 Ondansetron HCl (Zofran) 4 mg PRN Q8HRS PRN IV NAUSEA/VOMITING 1ST CHOICE Last administered on 06/26/18 04:40; Start 06/26/18 at 04:30 Azathioprine (Imuran) 100 mg BID PO ; Start 06/26/18 at 12:00 Diphenhydramine HCl (Benadryl) 100 mg QHS PO ; Start 06/26/18 at 21:00 Gabapentin (Neurontin) 300 mg Q8HRS PO ; Start 06/26/18 at 14:00 Trazodone HCl (Desyrel) 50 mg HS PO ; Start 06/26/18 at 21:00; Status UNV Non-Formulary Medication (Eletriptan Hbr (Relpax)) 20 mg PRN PRN PO MIGRAINE HEADACHE; Start 06/26/18 at 11:30; Status UNV Non-Formulary Medication (Nortriptyline Hcl ) 2 cap QHS PO ; Start 06/26/18 at 21 :00; Status UNV Non-Formulary Medication (Omeprazole ) 40 mg DAILY PO ; Start 06/27/18 at 09:00; Status UNV Non-Formulary Medication (Riboflavin ) 100 mg DAILY PO ; Start 06/27/18 at 09:00 ; Status UNV Non-Formulary Medication (Sucralfate (Carafate)) 1 tab TIDAC PO ; Start 06/26/18 at 11:30; Status UNV Non-Formulary Medication ([ferrous sulfate] ) 65 mg DAILY PO ; Start 06/27/18 at 09:00; Status UNV Non-Formulary Medication ([magnesium oxide] ) 200 mg DAILY PO ; Start 06/27/18 at 09:00; Status UNV Non-Formulary Medication ([potassium gluconate] ) 550 mg DAILY PO ; Start at 09:00; Status UNV Active Scripts Active Reported Riboflavin 100 Mg Tablet 100 Mg PO DAILY [magnesium oxide] 200 Mg PO DAILY [potassium gluconate] 550 Mg PO DAILY Benadryl (Diphenhydramine Hcl) 25 Mg Capsule 100 Mg PO QHS Imuran (Azathioprine) 50 Mg Tablet 100 Mg PO BID Stelara (Ustekinumab) 90 Mg/1 Ml Disp.syrin 90 Mg SQ Q6WKS Carafate (Sucralfate) 1 Gm Tablet 1 Tab PO TIDAC Nortriptyline Hcl 10 Mg Capsule 2 Cap PO QHS Trazodone Hcl 50 Mg Tablet 50 Mg PO HS Omeprazole 40 Mg Capsule.dr 40 Mg PO DAILY [ferrous sulfate] 65 Mg PO DAILY Relpax (Eletriptan Hbr) 20 Mg Tablet 20 Mg PO PRN PRN Gabapentin (Gabapentin) 300 Mg Capsule 300 Mg PO Q8HRS Vitals/I & O Vital Sign - Last 24 Hours 06/25/18 06/25/18 06/25/18 06/25/18 13:51 14:21 15:00 17:11 Temp 98.4 98.4 Pulse 74 Resp 18 18 B/P (MAP) 124/71 (88) Pulse Ox 94 97 O2 Delivery Room Air Room Air Room Air 06/25/18 06/25/18 06/25/18 06/25/18 17:41 19:28 19:59 23:59 Temp 98.4 97.0 98.4 97.0 Pulse 77 79 Resp 18 18 17 18 B/P (MAP) 122/71 (88) 127/76 (93) Pulse Ox 97 97 97 96 O2 Delivery Room Air Room Air Room Air 06/26/18 06/26/18 06/26/18 03:59 07:18 11:00 Temp 98.2 99.1 97.9 98.2 99.1 97.9 Pulse 81 75 76 Resp 18 18 18 B/P (MAP) 102/57 (72) 91/58 (69) 127/77 (94) Pulse Ox 96 94 98 O2 Delivery Room Air Room Air Room Air Intake and Output 06/25/18 06/25/18 06/26/18 14:59 22:59 06:59 Intake Total 370 ml 1125 ml 1480 ml Output Total 1200 ml Balance 370 ml -75 ml 1480 ml CEDRIC SCHMIDT MD Jun 26, 2018 11:24
--- NOTE | 2018-06-26 11:54 | PDOC2 ---
GI CONSULT HPI: HPI: Gurwinder Peralta is a 43 years old female patient with past medical history of obesity,Barry's esophagus and inflammatory bowel disease,NAFLD and migraine. She reports she was initially diagnosed with IBD when she was 19 years. She follows with . She was initially started with Asacol that she took for ten years with good control of her symptoms. She was then switched to Lialda for brief time and then Apriso that she has continued to take until now. She also reports she was started with Remicade 5 years ago that she had continued to take until a year ago when it was stopped for what appears to be secondary non-response with antibody formation while she has been on azathioprine for the last couple of years. Patient was then started with Entyvio that was stooped after six months with primary non-response. She is now started with Stelara and had received the induction dose a month ago. Patient is currently admitted after she presented with sudden onset abdominal pain, nausea, vomiting of ingested material and diarrhea of one week duration. The diarrhea was worsen between and Wednesday when she had watery bowel movement almost every hours. The diarrhea has now improved in the last couple of days and has not had bowel movement since yesterdays. Patient reports she has lost her appetite with decreased oral intake. She also gives history of congestion with runny nose and chills and sweating but no fever. Patient reports she had colonoscopic exam done in June/July 2017 and EGD in the last months of 2018. No contact history with sick person. No other complaints. She denies smoking cigarettes, drinking alcohols or using illicit drugs. . Social History: Smoke: No ALCOHOL: none Drugs: None ROS: GEN: Denies fevers, chills, sweats HEENT: Denies blurred vision, sore throat CV: Denies chest pain RESP: Denies shortness of air, cough GI: Per HPI : Denies hematuria, dysuria ENDO: Denies weight changes NEURO: Denies confusion, dizziness MSK: Denies weakness, joint pain/swelling SKIN: Denies jaundice, pruritus Vitals: Vitals: Vital Signs Date Time Temp Pulse Resp B/P (MAP) Pulse Ox O2 Delivery O2 Flow Rate FiO2 06/26/18 11:00 97.9 76 18 127/77 (94) 98 Room Air 97.9 Labs: Labs: Laboratory Tests Test 06/25/18 16:35 06/26/18 04:25 Lipase 331 U/L (73-393) White Blood Count 9.5 x10^3/uL (4.0-11.0) Red Blood Count 3.88 x10^6/uL (3.50-5.40) Hemoglobin 12.6 g/dL (12.0-15.5) Hematocrit 37.8 % (36.0-47.0) Mean Corpuscular Volume 97 fL (79-100) Mean Corpuscular Hemoglobin 33 pg (25-35) Mean Corpuscular Hemoglobin Concent 33 g/dL (31-37) Red Cell Distribution Width 15.0 % (11.5-14.5) Platelet Count 314 x10^3/uL (140-400) Neutrophils (%) (Auto) 63 % (31-73) Lymphocytes (%) (Auto) 27 % (24-48) Monocytes (%) (Auto) 6 % (0-9) Eosinophils (%) (Auto) 3 % (0-3) Basophils (%) (Auto) 1 % (0-3) Neutrophils # (Auto) 6.0 x10^3uL (1.8-7.7) Lymphocytes # (Auto) 2.6 x10^3/uL (1.0-4.8) Monocytes # (Auto) 0.6 x10^3/uL (0.0-1.1) Eosinophils # (Auto) 0.3 x10^3/uL (0.0-0.7) Basophils # (Auto) 0.1 x10^3/uL (0.0-0.2) Sodium Level 141 mmol/L (136-145) Potassium Level 4.1 mmol/L (3.5-5.1) Chloride Level 105 mmol/L (98-107) Carbon Dioxide Level 25 mmol/L (21-32) Anion Gap 11 (6-14) Blood Urea Nitrogen 7 mg/dL (7-20) Creatinine 0.8 mg/dL (0.6-1.0) Estimated GFR (Cockcroft-Gault) 77.9 BUN/Creatinine Ratio 9 (6-20) Glucose Level 85 mg/dL (70-99) Calcium Level 9.2 mg/dL (8.5-10.1) Total Bilirubin 0.3 mg/dL (0.2-1.0) Aspartate Amino Transf (AST/SGOT) 18 U/L (15-37) Alanine Aminotransferase (ALT/SGPT) 19 U/L (14-59) Alkaline Phosphatase 87 U/L (46-116) Total Protein 6.6 g/dL (6.4-8.2) Albumin 3.0 g/dL (3.4-5.0) Albumin/Globulin Ratio 0.8 (1.0-1.7) Allergies: Coded Allergies: erythromycin base (Verified Allergy, Intermediate, 06/24/18) nitrofurantoin (Verified Allergy, Intermediate, 06/24/18) Medications: Current Medications Medications (Trade) Dose Ordered Sig/Sánchez Route PRN Reason Start Time Stop Time Status Last Admin Dose Admin Pantoprazole Sodium (PROTONIX VIAL for IV PUSH) 40 mg DAILYAC IVP 06/26/18 07:30 06/26/18 08:51 Lactobacillus Rhamnosus (Culturelle) 1 cap BID PO 06/25/18 21:00 06/26/18 08:50 Acetaminophen (Tylenol) 650 mg PRN Q6HRS PRN PO HEADACHE 06/25/18 23:45 06/26/18 08:50 Ondansetron HCl (Zofran) 4 mg PRN Q8HRS PRN IV NAUSEA/VOMITING 1ST CHOICE 06/26/18 04:30 06/26/18 04:40 Imaging: Imaging: [facility] [address] [place] [address] IMAGING REPORT Signed PATIENT: GURWINDER PERALTA ACCOUNT: [id number] : 1975 LOCATION: ER AGE: 43 SEX: F EXAM STATUS: REG ER ORD. PHYSICIAN: [employer] REASON: abd pain- hx Crohn's/IBS, OMNI 300, 75ml PROCEDURE: CT ABD PELV W/ IV CONTRST ONLY Examination: CT ABD PELV W/ IV CONTRST ONLY History: abd pain- hx Crohn's/IBS, OMNI 300, 75ml Comparison/Correlation: None Findings: Axial images of the abdomen and pelvis were obtained following IV contrast. Sagittal and coronal reformatted images provided. Visualized lung bases are clear. Fatty infiltration at the gallbladder fossa focally is suggested with a 1.1 cm diameter low-attenuation lesion but this finding is too small to characterize. It is seen on axial image 31 of series 2 and coronal image 25 of series 4. Cholecystectomy evident. Spleen, pancreas, adrenal glands, and right kidney are normal. Left renal superior pole nonobstructive calyceal calculus measuring 0.4 cm diameter is present. Urinary bladder is unremarkable. No bowel obstruction. No inflammatory change about the cecum. Appendix is normal. No extraluminal gas. Small umbilical hernia containing omental fat. Uterus is unremarkable. L4-5 concentric disc bulge is noted. Impression: No inflammatory change, obstruction, or mass. Nonobstructive left renal calculus. Low-attenuation at the gallbladder fossa within the liver probably represents focal fatty infiltration but it is too small to characterize. Correlate with prior exams if available to assess stability. No suspicious characteristics however suspected. PQRS Compliance Statement: One or more of the following individualized dose reduction techniques were utilized for this examination: 1. Automated exposure control 2. Adjustment of the mA and/or kV according to patient size 3. Use of iterative reconstruction technique Electronically signed by: Bassam Armstrong MD (06/24/2018 9:40 PM) [facility] DICTATED and SIGNED BY: BASSAM ARMSTRONG MD DATE: 06/24/182132 PE: GEN: NAD HEENT: Atraumatic, PERRLA LUNGS: CTAB HEART: RRR, no murmurs ABD: NABS, S/ND/NT, no masses EXTREMITY: No edema SKIN: No rashes, no jaundice NEURO/PSYCH: A & O 3 A/P: A/P: Gurwinder Peralta is a 43 years old female patient with past medical history of obesity,Barry's esophagus and inflammatory bowel disease,NAFLD and migraine. She reports she was initially diagnosed with IBD when she was 19 years. She was initially started with Asacol that she took for ten years with good control of her symptoms. She was then switched to Lialda for brief time and then Apriso that she has continued to take until now. She also reports she was started with Remicade 5 years ago that she had continued to take until a year ago when it was stopped for what appears to be secondary non-response with antibody formation. She was then started with Entyvio that was stooped after six months with primary non-response. She is now started with Stelara and had received the induction dose a month ago. Patient is currently admitted after she presented with sudden onset abdominal pain, nausea, vomiting of ingested material and diarrhea of one week duration. Patient reports she has lost her appetite with decreased oral intake. She also gives history of congestion with runny nose and chills and sweating but no fever. Her initial labs were notable for mild leucocytosis likely from hemoconcentration with volume depletion. he blood woks from this morning noted to be unremarkable. C.diff was negative. Imaging of abdomen and pelvis with iv contrast only notable for no bowel obstruction or inflammatory change in the bowel. She has also normal spleen, pancreas ,adrenal glands and right kidney. There was evidence of left renal superior pole nonobstructive calyceal calculus measuring 0.4 cm in diameter is present. There was also evidence of small umbilical hernia containing omental fat. Suspect patient might have viral process though can not rule out flare up of IBD. Recommendations - Continue with supportive cares. - Antiemetics: Zofran/promethazine. - Continue with the out patient medications. - Diet as tolerated. - DVT prophylaxis with increased risk of hypercoagulability in setting of IBD. - Follow with as out patient. Thank you for involving in the care of this interesting patient. . LINDSAY CRUZ MD Jun 26, 2018 11:54
[2018-06-26] MEDS ORDERED: LIDO:MAALOX 1:1 20 ML SINGLE DOSE. SWSW ONE (12:00)
[2018-06-26] MEDS: cefTRIAXone IV Push 1 GM VIAL. IVP SCH (12:48)
[2018-06-26] MEDS: azaTHIOprine 50 MG TABLET PO SCH ×2 (12:49→21:13)
[2018-06-26] MEDS: FERROUS SULFATE 325 MG TABLET. PO SCH (12:50)
[2018-06-26] MEDS: MAGNESIUM OXIDE 400 MG TABLET PO SCH (12:50)
[2018-06-26] MEDS: IV NORMAL SALINE 1000ML BAG 1,000 ML IV SCH (13:10)
[2018-06-26] MEDS: SUMAtriptan SUCCINATE 25 MG TABLET PO PRN ×2 (13:10→16:02)
[2018-06-26 15:00] VITALS: BP 125/72
[2018-06-26] MEDS: GABAPENTIN 300 MG CAPSULE. PO SCH ×2 (15:49→21:14)
[2018-06-26] MEDS: SUCRALFATE 1 GM TABLET. PO SCH ×2 (15:49→21:14)
[2018-06-26 19:00] VITALS: BP 141/79
[2018-06-26] MEDS: diphenhydrAMINE HCL 25 MG CAPSULE PO SCH (21:13)
[2018-06-26] MEDS: ENOXAPARIN 40 MG/0.4 ML SYRINGE. SQ SCH (21:13)
[2018-06-26] MEDS: NORTRIPTYLINE 10 MG CAPSULE PO SCH (21:14)
[2018-06-26] MEDS: traZODone 50 MG TABLET. PO SCH (21:14)
[2018-06-26 23:00] VITALS: BP 130/80
[2018-06-27] MEDS: IV NORMAL SALINE 1000ML BAG 1,000 ML IV SCH ×2 (01:57→16:40)
[2018-06-27] MEDS: ONDANSETRON PF 4 MG/2 ML VIAL. IV PRN (02:44)
[2018-06-27 03:00] VITALS: BP 118/69
[2018-06-27] MEDS: GABAPENTIN 300 MG CAPSULE. PO SCH ×3 (06:05→21:35)
[2018-06-27 07:00] VITALS: BP 119/78
[2018-06-27] MEDS: PANTOPRAZOLE IV PUSH 40 MG VIAL. IVP SCH (08:22)
[2018-06-27] MEDS: FERROUS SULFATE 325 MG TABLET. PO SCH (08:22)
[2018-06-27] MEDS: azaTHIOprine 50 MG TABLET PO SCH ×2 (08:22→21:35)
[2018-06-27] MEDS: LACTOBACILLUS RHAMNOSUS GG 1 CAPSULE. PO SCH (08:22)
[2018-06-27] MEDS: SUCRALFATE 1 GM TABLET. PO SCH ×3 (08:22→22:39)
[2018-06-27] MEDS: MAGNESIUM OXIDE 400 MG TABLET PO SCH (08:23)
[2018-06-27] MEDS ORDERED: RIBOFLAVIN 100 MG PO SCH (09:00)
[2018-06-27] MEDS ORDERED: POTASSIUM GLUCONATE 550 MG PO SCH (09:00)
[2018-06-27] MEDS ORDERED: NON FORMULARY ITEM (Omeprazole 40 MG) PO SCH (09:00)
--- NOTE | 2018-06-27 10:05 | PDOC ---
PROGRESS NOTES History of Present Illness History of Present Illness Assessment/Plan Assessment/Plan impression 1. intractable nausea 2. abdominal,esophageal discomfort hx mucosal irregularity of the esophagus suggestive of esophagitis. There is no significant hiatal hernia. There was incomplete relaxation of the lower esophageal sphincter. by ugi barium swallow 3. possible uti mixed jeannine, d/c antibiotics 3/ 4. Barry's esophagus 5. inflammatory bowel disease, 6. NAFLD 3/ still having esophageal symptoms, trying toast for dinner 3/4 NOT IMPROVING MUCH re intake c pain swallowing , may need egd soon plan iv fluid support iv protonix iv zofran 4 mg q 4 hrs prn GI consult iv rocephin emperic for possible uti Antiemetics: Zofran/promethazine. dvt prophylaxis Vitals Vitals Vital Signs Date Time Temp Pulse Resp B/P (MAP) Pulse Ox O2 Delivery O2 Flow Rate FiO2 06/27/18 07:00 98.1 80 16 119/78 (92) 97 Room Air 98.1 Physical Exam General: Alert, Oriented X3, Cooperative, mild distress Heart: Regular rate, Normal S1, Normal S2 Lungs: Clear Abdomen: Normal bowel sounds, Soft Extremities: No clubbing, No cyanosis, No edema Skin: No rashes, No breakdown, No significant lesion Labs LABS SPEC #: [id number] BRADLEY: 06/24/18 STATUS: COMP REQ #: [id number] RECD: 06/24/[address]: NEIL LAURNET APRN SOURCE: VOID ENTR: 06/24/[address]: KAREN ROMERO MD [facility]: ORDERED: URINE CULTURE Procedure Result URINE CULTURE Final Final report URINE CULTURE RES 1 Final Comment Mixed urogenital jeannine 50,000-100,000 colony forming units per mL Performed at: DA - [facility] [address], [place], [place] [id number] Sales Assistant: ROSI Frausto MD, Phone: [phone] Comment Review of Relevant I have reviewed the following items eb (where applicable) has been applied. Labs Laboratory Tests Test 06/25/18 16:35 06/26/18 04:25 Lipase 331 U/L (73-393) White Blood Count 9.5 x10^3/uL (4.0-11.0) Red Blood Count 3.88 x10^6/uL (3.50-5.40) Hemoglobin 12.6 g/dL (12.0-15.5) Hematocrit 37.8 % (36.0-47.0) Mean Corpuscular Volume 97 fL (79-100) Mean Corpuscular Hemoglobin 33 pg (25-35) Mean Corpuscular Hemoglobin Concent 33 g/dL (31-37) Red Cell Distribution Width 15.0 % (11.5-14.5) Platelet Count 314 x10^3/uL (140-400) Neutrophils (%) (Auto) 63 % (31-73) Lymphocytes (%) (Auto) 27 % (24-48) Monocytes (%) (Auto) 6 % (0-9) Eosinophils (%) (Auto) 3 % (0-3) Basophils (%) (Auto) 1 % (0-3) Neutrophils # (Auto) 6.0 x10^3uL (1.8-7.7) Lymphocytes # (Auto) 2.6 x10^3/uL (1.0-4.8) Monocytes # (Auto) 0.6 x10^3/uL (0.0-1.1) Eosinophils # (Auto) 0.3 x10^3/uL (0.0-0.7) Basophils # (Auto) 0.1 x10^3/uL (0.0-0.2) Sodium Level 141 mmol/L (136-145) Potassium Level 4.1 mmol/L (3.5-5.1) Chloride Level 105 mmol/L (98-107) Carbon Dioxide Level 25 mmol/L (21-32) Anion Gap 11 (6-14) Blood Urea Nitrogen 7 mg/dL (7-20) Creatinine 0.8 mg/dL (0.6-1.0) Estimated GFR (Cockcroft-Gault) 77.9 BUN/Creatinine Ratio 9 (6-20) Glucose Level 85 mg/dL (70-99) Calcium Level 9.2 mg/dL (8.5-10.1) Total Bilirubin 0.3 mg/dL (0.2-1.0) Aspartate Amino Transf (AST/SGOT) 18 U/L (15-37) Alanine Aminotransferase (ALT/SGPT) 19 U/L (14-59) Alkaline Phosphatase 87 U/L (46-116) Total Protein 6.6 g/dL (6.4-8.2) Albumin 3.0 g/dL (3.4-5.0) Albumin/Globulin Ratio 0.8 (1.0-1.7) Microbiology 06/24/18 Urine Culture - Final, Complete 06/24/18 Urine Culture Result 1 (DEVANTE) - Final, Complete Medications Current Medications Sodium Chloride 1,000 ml @ 1,000 mls/hr 1X ONCE IV Last administered on at 19:21; Start 06/24/18 at 19:00; Stop 06/24/18 at 19:59; Status DC Ondansetron HCl (Zofran) 4 mg 1X ONCE IV Last administered on 06/24/18at 19:31; Start 06/24/18 at 19:00; Stop 06/24/18 at 19:02; Status DC Fentanyl Citrate (Fentanyl 2ml Vial) 25 mcg 1X ONCE IV Last administered on 06/24/18at 19:28; Start 06/24/18 at 19:00; Stop 06/24/18 at 19:04; Status DC Dicyclomine HCl (Bentyl) 20 mg 1X ONCE IM Last administered on 06/24/18 19:37 ; Start 06/24/18 at 19:00; Stop 06/24/18 at 19:04; Status DC Metoclopramide HCl (Reglan Vial) 10 mg 1X ONCE IV Last administered on 20:24; Start 06/24/18 at 20:15; Stop 06/24/18 at 20:16; Status DC Iohexol (Omnipaque 300 Mg/ml) 75 ml 1X ONCE IV Last administered on 06/24/18 20:43; Start 06/24/18 at 21:00; Stop 06/24/18 at 21:01; Status DC Info (CONTRAST GIVEN -- Rx MONITORING) 1 each PRN DAILY PRN MC SEE COMMENTS; Start 06/24/18 at 20:30; Stop 06/26/18 at 20:29; Status DC Multi-Ingredient Mouthwash/Gargle (Gi Cocktail) 20 ml 1X ONCE SWSW Last administered on 06/24/18 22:04; Start 06/24/18 at 22:15; Stop 06/24/18 at 22:16; Status DC Fentanyl Citrate (Fentanyl 2ml Vial) 50 mcg 1X ONCE IV Last administered on 23:39; Start 06/24/18 at 23:30; Stop 06/24/18 at 23:31; Status DC Ondansetron HCl (Zofran) 4 mg PRN Q8HRS PRN IV NAUSEA/VOMITING 1ST CHOICE Last administered on 06/25/18 18:27; Start 06/25/18 at 00:15; Stop 06/26/18 at 00:14; Status DC Fentanyl Citrate (Fentanyl 2ml Vial) 50 mcg PRN Q2HR PRN IV SEVERE PAIN Last administered on 06/25/18 19:28; Start 06/25/18 at 00:15; Stop 06/26/18 at 00:14; Status DC Sodium Chloride 1,000 ml @ 100 mls/hr Q10H IV Last administered on 06/25/18 20 :43; Start 06/25/18 at 00:30; Stop 06/26/18 at 00:29; Status DC Pantoprazole Sodium (PROTONIX VIAL for IV PUSH) 40 mg DAILYAC IVP Last administered on 06/27/18 08:22; Start 06/26/18 at 07:30 Ceftriaxone Sodium (Rocephin) 1 gm Q24H IVP Last administered on 06/26/18 12:48 ; Start 06/25/18 at 11:00 Lactobacillus Rhamnosus (Culturelle) 1 cap BID PO Last administered on 08:22; Start 06/25/18 at 21:00 Acetaminophen (Tylenol) 650 mg PRN Q6HRS PRN PO HEADACHE Last administered on 08:50; Start 06/25/18 at 23:45 Ondansetron HCl (Zofran) 4 mg PRN Q8HRS PRN IV NAUSEA/VOMITING 1ST CHOICE Last administered on 06/27/18 02:44; Start 06/26/18 at 04:30 Azathioprine (Imuran) 100 mg BID PO Last administered on 06/27/18 08:22; Start 06/26/18 at 12:00 Diphenhydramine HCl (Benadryl) 100 mg QHS PO Last administered on 06/26/18 21: 13; Start 06/26/18 at 21:00 Gabapentin (Neurontin) 300 mg Q8HRS PO Last administered on 06/27/18 06:05; Start 06/26/18 at 14:00 Trazodone HCl (Desyrel) 50 mg HS PO Last administered on 06/26/18 21:14; Start 06/26/18 at 21:00 Sumatriptan Succinate (Imitrex) 50 mg PRN Q2HR PRN PO MIGRAINE HEADACHE Last administered on 06/26/18 16:02; Start 06/26/18 at 11:30 Nortriptyline HCl (Pamelor) 20 mg QHS PO Last administered on 06/26/18 21:14; Start 06/26/18 at 21:00 Non-Formulary Medication (Omeprazole ) 40 mg DAILY PO ; Start 06/27/18 at 09:00; Status UNV Non-Formulary Medication (Riboflavin ) 100 mg DAILY PO ; Start 06/27/18 at 09:00 ; Status UNV Sucralfate (Carafate) 1 gm TID PO Last administered on 06/27/18 08:22; Start at 14:00 Ferrous Sulfate (Feosol) 325 mg DAILYWBKFT PO Last administered on 06/27/18 08: 22; Start 06/26/18 at 12:00 Magnesium Oxide (Magnesium Oxide) 200 mg DAILY PO Last administered on 08:23; Start 06/26/18 at 12:00 Non-Formulary Medication ([potassium gluconate] ) 550 mg DAILY PO ; Start at 09:00; Status UNV Multi-Ingredient Mouthwash/Gargle (Gi Cocktail) 20 ml 1X ONCE SWSW Last administered on 06/26/18 12:49; Start 06/26/18 at 12:00; Stop 06/26/18 at 12:01; Status DC Sodium Chloride 1,000 ml @ 75 mls/hr [id number] IV Last administered on 06/27/18 01:57; Start 06/26/18 at 13:30 Enoxaparin Sodium (Lovenox 40mg Syringe) 40 mg Q24H SQ Last administered on 06/26 21:13; Start 06/26/18 at 21:00 Active Scripts Active Reported Riboflavin 100 Mg Tablet 100 Mg PO DAILY [magnesium oxide] 200 Mg PO DAILY [potassium gluconate] 550 Mg PO DAILY Benadryl (Diphenhydramine Hcl) 25 Mg Capsule 100 Mg PO QHS Imuran (Azathioprine) 50 Mg Tablet 100 Mg PO BID Stelara (Ustekinumab) 90 Mg/1 Ml Disp.syrin 90 Mg SQ Q6WKS Carafate (Sucralfate) 1 Gm Tablet 1 Tab PO TIDAC Nortriptyline Hcl 10 Mg Capsule 2 Cap PO QHS Trazodone Hcl 50 Mg Tablet 50 Mg PO HS Omeprazole 40 Mg Capsule.dr 40 Mg PO DAILY [ferrous sulfate] 65 Mg PO DAILY Relpax (Eletriptan Hbr) 20 Mg Tablet 20 Mg PO PRN PRN Gabapentin (Gabapentin) 300 Mg Capsule 300 Mg PO Q8HRS Vitals/I & O Vital Sign - Last 24 Hours 06/26/18 06/26/18 06/26/18 06/26/18 11:00 15:00 19:00 23:00 Temp 97.9 97.9 97.7 97.7 97.9 97.9 97.7 97.7 Pulse 76 78 78 74 Resp 18 18 18 18 B/P (MAP) 127/77 (94) 125/72 (89) 141/79 (99) 130/80 (97) Pulse Ox 98 98 98 100 O2 Delivery Room Air Room Air Room Air 06/27/18 06/27/18 03:00 07:00 Temp 97.9 98.1 97.9 98.1 Pulse 71 80 Resp 18 16 B/P (MAP) 118/69 (85) 119/78 (92) Pulse Ox 100 97 O2 Delivery Room Air Intake and Output 06/26/18 06/26/18 06/27/18 15:00 23:00 07:00 Intake Total 540 ml 300 ml 1000 ml Balance 540 ml 300 ml 1000 ml CEDRIC SCHMIDT MD Jun 27, 2018 10:05
[2018-06-27 11:00] VITALS: BP 148/72
[2018-06-27] MEDS: cefTRIAXone IV Push 1 GM VIAL. IVP SCH (11:59)
--- NOTE | 2018-06-27 12:07 | NUR ---
SW following for discharge planning. Discussed with RN, RN advised no SW needs at this time. Trying to increase diet today. SW will continue to follow.
--- NOTE | 2018-06-27 12:12 | PDOC ---
Subjective: Subjective: Took a long time to eat a few bites of breakfast - felt burpy, felt acid in throat. No vomiting. Has epigastric, bilateral mid abdominal, and LLQ cramping that is worse before stooling but not resolved after. No stools today. Passing flatus. Better overall, just not much. Says she has Crohn's, UC, and Barry's/ Objective: Objective: Per RNs - didn't eat much full liquid breakfast but then wanted sherbet because the "cold helps." Vital Signs: Vital Signs Date Time Temp Pulse Resp B/P (MAP) Pulse Ox O2 Delivery O2 Flow Rate FiO2 06/27/18 11:00 97.9 89 18 148/72 (97) 97 Room Air 97.9 Labs: URINE CULTURE Final Final report URINE CULTURE RES 1 Final Comment Mixed urogenital jeannine PE: GEN: NAD, up to chair LUNGS: CTAB HEART: RRR ABD: tender - epigastrium, periumbilical, vaguely LLQ; soft, BS+ NEURO/PSYCH: A & O 3 A/P: N/v, diarrhea - better? H/o Barry's and IBD - on PPI. Imuran, and Stelara w/ 'scopes last year - sees Dr. Lilly -- Labs and imaging unremarkable. ?viral Can change to PO PPI. ?need for Rocephin ADAT. Will review office records w/ Dr. Rea. STALIN MAI Jun 27, 2018 12:12
[2018-06-27] MEDS: SUMAtriptan SUCCINATE 25 MG TABLET PO PRN (14:33)
[2018-06-27 15:00] VITALS: BP 137/84
[2018-06-27 19:00] VITALS: BP 134/70
[2018-06-27] MEDS: diphenhydrAMINE HCL 25 MG CAPSULE PO SCH (21:34)
[2018-06-27] MEDS: ENOXAPARIN 40 MG/0.4 ML SYRINGE. SQ SCH (21:35)
[2018-06-27] MEDS: traZODone 50 MG TABLET. PO SCH (21:35)
[2018-06-27] MEDS: NORTRIPTYLINE 10 MG CAPSULE PO SCH (21:35)
[2018-06-27 22:42] VITALS: BP 133/81
[2018-06-28 02:59] VITALS: BP 131/77
[2018-06-28] MEDS: GABAPENTIN 300 MG CAPSULE. PO SCH ×3 (05:16→21:31)
[2018-06-28] MEDS: IV NORMAL SALINE 1000ML BAG 1,000 ML IV SCH ×2 (05:17→18:52)
[2018-06-28 07:00] VITALS: BP 114/76
[2018-06-28] MEDS: SUMAtriptan SUCCINATE 25 MG TABLET PO PRN ×3 (07:25→21:41)
[2018-06-28] MEDS: PANTOPRAZOLE 40 MG TABLET.DR. PO SCH (07:25)
[2018-06-28] MEDS: FERROUS SULFATE 325 MG TABLET. PO SCH (08:34)
[2018-06-28] MEDS: MAGNESIUM OXIDE 400 MG TABLET PO SCH (08:34)
[2018-06-28] MEDS: azaTHIOprine 50 MG TABLET PO SCH ×2 (08:34→21:30)
[2018-06-28] MEDS: SUCRALFATE 1 GM TABLET. PO SCH ×3 (10:08→21:31)
[2018-06-28] MEDS: ACETAMINOPHEN 325 MG TABLET. PO PRN (10:10)
[2018-06-28 10:34] VITALS: BP 127/75
--- NOTE | 2018-06-28 14:44 | PDOC ---
PROGRESS NOTES Chief Complaint Chief Complaint impression 1. intractable nausea improving 2. abdominal,esophageal discomfort hx mucosal irregularity of the esophagus suggestive of esophagitis. There is no significant hiatal hernia. There was incomplete relaxation of the lower esophageal sphincter. by ugi barium swallow 3.asymptomatic bacteriuria received 3 days of antibiotics. 4. Barry's esophagus 5. inflammatory bowel disease, 6. NAFLD plan discontinue iv fluid support iv protonix iv zofran 4 mg q 4 hrs prn GI executive search consultant recommendations noted and greatly appreciated Antiemetics: Zofran/promethazine. introduce low residue foods as tolerated reassess in the am dvt prophylaxis History of Present Illness History of Present Illness 06/26 still having esophageal symptoms, trying toast for dinner 06/27 NOT IMPROVING MUCH re intake c pain swallowing , may need egd soon 06/28 patient still nauseous and with discomfort unable to eat much she is slowly introducing low residue foods. Reassurance provided, no acute events reported overnight. Vitals Vitals Vital Signs Date Time Temp Pulse Resp B/P (MAP) Pulse Ox O2 Delivery O2 Flow Rate FiO2 06/28/18 10:34 97.8 78 18 127/75 (92) 100 Room Air 97.8 Physical Exam General: Alert, Oriented X3, Cooperative, mild distress Heart: Regular rate, Normal S1, Normal S2 Lungs: Clear Abdomen: Normal bowel sounds, Soft Extremities: No clubbing, No cyanosis, No edema Skin: No rashes, No breakdown, No significant lesion Comment Review of Relevant I have reviewed the following items eb (where applicable) has been applied. Labs Microbiology 06/24/18 Urine Culture - Final, Complete 06/24/18 Urine Culture Result 1 (DEVANTE) - Final, Complete Medications Current Medications Sodium Chloride 1,000 ml @ 1,000 mls/hr 1X ONCE IV Last administered on at 19:21; Start 06/24/18 at 19:00; Stop 06/24/18 at 19:59; Status DC Ondansetron HCl (Zofran) 4 mg 1X ONCE IV Last administered on 06/24/18at 19:31; Start 06/24/18 at 19:00; Stop 06/24/18 at 19:02; Status DC Fentanyl Citrate (Fentanyl 2ml Vial) 25 mcg 1X ONCE IV Last administered on 06/24/18at 19:28; Start 06/24/18 at 19:00; Stop 06/24/18 at 19:04; Status DC Dicyclomine HCl (Bentyl) 20 mg 1X ONCE IM Last administered on 06/24/18at 19:37 ; Start 06/24/18 at 19:00; Stop 06/24/18 at 19:04; Status DC Metoclopramide HCl (Reglan Vial) 10 mg 1X ONCE IV Last administered on at 20:24; Start 06/24/18 at 20:15; Stop 06/24/18 at 20:16; Status DC Iohexol (Omnipaque 300 Mg/ml) 75 ml 1X ONCE IV Last administered on 06/24/18at 20:43; Start 06/24/18 at 21:00; Stop 06/24/18 at 21:01; Status DC Info (CONTRAST GIVEN -- Rx MONITORING) 1 each PRN DAILY PRN MC SEE COMMENTS; Start 06/24/18 at 20:30; Stop 06/26/18 at 20:29; Status DC Multi-Ingredient Mouthwash/Gargle (Gi Cocktail) 20 ml 1X ONCE SWSW Last administered on 06/24/18at 22:04; Start 06/24/18 at 22:15; Stop 06/24/18 at 22:16; Status DC Fentanyl Citrate (Fentanyl 2ml Vial) 50 mcg 1X ONCE IV Last administered on 06/24/18at 23:39; Start 06/24/18 at 23:30; Stop 06/24/18 at 23:31; Status DC Ondansetron HCl (Zofran) 4 mg PRN Q8HRS PRN IV NAUSEA/VOMITING 1ST CHOICE Last administered on 06/25/18 18:27; Start 06/25/18 at 00:15; Stop 06/26/18 at 00:14; Status DC Fentanyl Citrate (Fentanyl 2ml Vial) 50 mcg PRN Q2HR PRN IV SEVERE PAIN Last administered on 06/25/18 19:28; Start 06/25/18 at 00:15; Stop 06/26/18 at 00:14; Status DC Sodium Chloride 1,000 ml @ 100 mls/hr Q10H IV Last administered on 06/25/18 20 :43; Start 06/25/18 at 00:30; Stop 06/26/18 at 00:29; Status DC Pantoprazole Sodium (PROTONIX VIAL for IV PUSH) 40 mg DAILYAC IVP Last administered on 06/27/18 08:22; Start 06/26/18 at 07:30; Stop 06/27/18 at 12:10; Status DC Ceftriaxone Sodium (Rocephin) 1 gm Q24H IVP Last administered on 06/27/18 11:59 ; Start 06/25/18 at 11:00; Stop 06/27/18 at 13:52; Status DC Lactobacillus Rhamnosus (Culturelle) 1 cap BID PO Last administered on 08:22; Start 06/25/18 at 21:00; Stop 06/27/18 at 12:44; Status DC Acetaminophen (Tylenol) 650 mg PRN Q6HRS PRN PO HEADACHE Last administered on 10:10; Start 06/25/18 at 23:45 Ondansetron HCl (Zofran) 4 mg PRN Q8HRS PRN IV NAUSEA/VOMITING 1ST CHOICE Last administered on 06/27/18 02:44; Start 06/26/18 at 04:30 Azathioprine (Imuran) 100 mg BID PO Last administered on 06/28/18 08:34; Start 06/26/18 at 12:00 Diphenhydramine HCl (Benadryl) 100 mg QHS PO Last administered on 06/27/18 21: 34; Start 06/26/18 at 21:00 Gabapentin (Neurontin) 300 mg Q8HRS PO Last administered on 06/28/18 13:56; Start 06/26/18 at 14:00 Trazodone HCl (Desyrel) 50 mg HS PO Last administered on 06/27/18 21:35; Start 06/26/18 at 21:00 Sumatriptan Succinate (Imitrex) 50 mg PRN Q2HR PRN PO MIGRAINE HEADACHE Last administered on 06/28/18 13:56; Start 06/26/18 at 11:30 Nortriptyline HCl (Pamelor) 20 mg QHS PO Last administered on 06/27/18 21:35; Start 06/26/18 at 21:00 Non-Formulary Medication (Omeprazole ) 40 mg DAILY PO ; Start 06/27/18 at 09:00; Status UNV Non-Formulary Medication (Riboflavin ) 100 mg DAILY PO ; Start 06/27/18 at 09:00 ; Status UNV Sucralfate (Carafate) 1 gm TID PO Last administered on 06/27/18 08:22; Start at 14:00; Stop 06/27/18 at 12:46; Status DC Ferrous Sulfate (Feosol) 325 mg DAILYWBKFT PO Last administered on 06/28/18 08: 34; Start 06/26/18 at 12:00 Magnesium Oxide (Magnesium Oxide) 200 mg DAILY PO Last administered on 08:34; Start 06/26/18 at 12:00 Non-Formulary Medication ([potassium gluconate] ) 550 mg DAILY PO ; Start at 09:00; Status UNV Multi-Ingredient Mouthwash/Gargle (Gi Cocktail) 20 ml 1X ONCE SWSW Last administered on 06/26/18 12:49; Start 06/26/18 at 12:00; Stop 06/26/18 at 12:01; Status DC Sodium Chloride 1,000 ml @ 75 mls/hr [id number] IV Last administered on 06/28/18 05:17; Start 06/26/18 at 13:30 Enoxaparin Sodium (Lovenox 40mg Syringe) 40 mg Q24H SQ Last administered on 06/27 21:35; Start 06/26/18 at 21:00 Pantoprazole Sodium (Protonix) 40 mg DAILYAC PO Last administered on 06/28/18 07:25; Start 06/28/18 at 07:30 Sucralfate (Carafate) 1 gm TID@1000,1400,2200 PO Last administered on 06/28/18 13:56; Start 06/27/18 at 14:00 Active Scripts Active Reported Riboflavin 100 Mg Tablet 100 Mg PO DAILY [magnesium oxide] 200 Mg PO DAILY [potassium gluconate] 550 Mg PO DAILY Benadryl (Diphenhydramine Hcl) 25 Mg Capsule 100 Mg PO QHS Imuran (Azathioprine) 50 Mg Tablet 100 Mg PO BID Stelara (Ustekinumab) 90 Mg/1 Ml Disp.syrin 90 Mg SQ Q6WKS Carafate (Sucralfate) 1 Gm Tablet 1 Tab PO TIDAC Nortriptyline Hcl 10 Mg Capsule 2 Cap PO QHS Trazodone Hcl 50 Mg Tablet 50 Mg PO HS Omeprazole 40 Mg Capsule.dr 40 Mg PO DAILY [ferrous sulfate] 65 Mg PO DAILY Relpax (Eletriptan Hbr) 20 Mg Tablet 20 Mg PO PRN PRN Gabapentin (Gabapentin) 300 Mg Capsule 300 Mg PO Q8HRS Vitals/I & O Vital Sign - Last 24 Hours 06/27/18 06/27/18 06/27/18 06/28/18 15:00 19:00 22:42 02:59 Temp 97.9 97.5 97.7 97.9 97.9 97.5 97.7 97.9 Pulse 81 83 86 86 Resp 18 B/P (MAP) 137/84 (101) 134/70 (91) 133/81 (98) 131/77 (95) Pulse Ox 100 98 97 97 O2 Delivery Room Air Room Air Room Air Room Air 06/28/18 06/28/18 06/28/18 07:00 07:32 10:34 Temp 97.9 97.8 97.9 97.8 Pulse 83 78 Resp B/P (MAP) 114/76 (89) 127/75 (92) Pulse Ox 98 100 O2 Delivery Room Air Room Air Room Air Intake and Output 06/27/18 06/27/18 06/28/18 15:00 23:00 07:00 Intake Total 250 ml 1440 ml 1000 ml Balance 250 ml 1440 ml 1000 ml EMELY SALINAS MD Jun 28, 2018 14:44
--- NOTE | 2018-06-28 14:59 | PDOC ---
Subjective: Subjective: Doing better - tolerating more PO w/ less belching/burning, no stools today, and less abd pain. Says going home tomorrow if she can eat more solid food and keep it in. Objective: Objective: D/w RN and Dr. Bro - had considered DC today. Vital Signs: Vital Signs Date Time Temp Pulse Resp B/P (MAP) Pulse Ox O2 Delivery O2 Flow Rate FiO2 06/28/18 10:34 97.8 78 18 127/75 (92) 100 Room Air 97.8 Labs: Current Medications Medications (Trade) Dose Ordered Sig/Sánchez Route PRN Reason Start Time Stop Time Status Last Admin Dose Admin Sodium Chloride 1,000 ml @ 1,000 mls/hr 1X ONCE IV 06/24/18 19:00 06/24/18 19:59 DC 06/24/18 19:21 Ondansetron HCl (Zofran) 4 mg 1X ONCE IV 06/24/18 19:00 06/24/18 19:02 DC 06/24/18 19:31 Fentanyl Citrate (Fentanyl 2ml Vial) 25 mcg 1X ONCE IV 06/24/18 19:00 06/24/18 19:04 DC 06/24/18 19:28 Dicyclomine HCl (Bentyl) 20 mg 1X ONCE IM 06/24/18 19:00 06/24/18 19:04 DC 06/24/18 19:37 Metoclopramide HCl (Reglan Vial) 10 mg 1X ONCE IV 06/24/18 20:15 06/24/18 20:16 DC 06/24/18 20:24 Iohexol (Omnipaque 300 Mg/ml) 75 ml 1X ONCE IV 06/24/18 21:00 06/24/18 21:01 DC 06/24/18 20:43 Info (CONTRAST GIVEN -- Rx MONITORING) 1 each PRN DAILY PRN MC SEE COMMENTS 06/24/18 20:30 06/26/18 20:29 DC Multi-Ingredient Mouthwash/Gargle (Gi Cocktail) 20 ml 1X ONCE SWSW 06/24/18 22:15 06/24/18 22:16 DC 06/24/18 22:04 Fentanyl Citrate (Fentanyl 2ml Vial) 50 mcg 1X ONCE IV 06/24/18 23:30 06/24/18 23:31 DC 06/24/18 23:39 Ondansetron HCl (Zofran) 4 mg PRN Q8HRS PRN IV NAUSEA/VOMITING 1ST CHOICE 06/25/18 00:15 06/26/18 00:14 DC 06/25/18 18:27 Fentanyl Citrate (Fentanyl 2ml Vial) 50 mcg PRN Q2HR PRN IV SEVERE PAIN 06/25/18 00:15 06/26/18 00:14 DC 06/25/18 19:28 Sodium Chloride 1,000 ml @ 100 mls/hr Q10H IV 06/25/18 00:30 06/26/18 00:29 DC 06/25/18 20:43 Pantoprazole Sodium (PROTONIX VIAL for IV PUSH) 40 mg DAILYAC IVP 06/26/18 07:30 06/27/18 12:10 DC 06/27/18 08:22 Ceftriaxone Sodium (Rocephin) 1 gm Q24H IVP 06/25/18 11:00 06/27/18 13:52 DC 06/27/18 11:59 Lactobacillus Rhamnosus (Culturelle) 1 cap BID PO 06/25/18 21:00 06/27/18 12:44 DC 06/27/18 08:22 Acetaminophen (Tylenol) 650 mg PRN Q6HRS PRN PO HEADACHE 06/25/18 23:45 06/28/18 10:10 Ondansetron HCl (Zofran) 4 mg PRN Q8HRS PRN IV NAUSEA/VOMITING 1ST CHOICE 06/26/18 04:30 06/27/18 02:44 Azathioprine (Imuran) 100 mg BID PO 06/26/18 12:00 06/28/18 08:34 Diphenhydramine HCl (Benadryl) 100 mg QHS PO 06/26/18 21:00 06/27/18 21:34 Gabapentin (Neurontin) 300 mg Q8HRS PO 06/26/18 14:00 06/28/18 13:56 Trazodone HCl (Desyrel) 50 mg HS PO 06/26/18 21:00 06/27/18 21:35 Sumatriptan Succinate (Imitrex) 50 mg PRN Q2HR PRN PO MIGRAINE HEADACHE 06/26/18 11:30 06/28/18 13:56 Nortriptyline HCl (Pamelor) 20 mg QHS PO 06/26/18 21:00 06/27/18 21:35 Non-Formulary Medication (Omeprazole ) 40 mg DAILY PO 06/27/18 09:00 UNV Non-Formulary Medication (Riboflavin ) 100 mg DAILY PO 06/27/18 09:00 UNV Sucralfate (Carafate) 1 gm TID PO 06/26/18 14:00 06/27/18 12:46 DC 06/27/18 08:22 Ferrous Sulfate (Feosol) 325 mg DAILYWBKFT PO 06/26/18 12:00 06/28/18 08:34 Magnesium Oxide (Magnesium Oxide) 200 mg DAILY PO 06/26/18 12:00 06/28/18 08:34 Non-Formulary Medication ([potassium gluconate] ) 550 mg DAILY PO 06/27/18 09:00 UNV Multi-Ingredient Mouthwash/Gargle (Gi Cocktail) 20 ml 1X ONCE SWSW 06/26/18 12:00 06/26/18 12:01 DC 06/26/18 12:49 Sodium Chloride 1,000 ml @ 75 mls/hr [id number] IV 06/26/18 13:30 06/28/18 05:17 Enoxaparin Sodium (Lovenox 40mg Syringe) 40 mg Q24H SQ 06/26/18 21:00 06/27/18 21:35 Pantoprazole Sodium (Protonix) 40 mg DAILYAC PO 06/28/18 07:30 06/28/18 07:25 Sucralfate (Carafate) 1 gm TID@1000,1400,2200 PO 06/27/18 14:00 06/28/18 13:56 PE: GEN: NAD, up to chair LUNGS: CTAB HEART: RRR ABD: less tender, soft NEURO/PSYCH: A & O 3 A/P: N/v/dyspepsia, abd pain, diarrhea - better H/o Barry's and IBD -- Improving. ADAT, DC per primary, follow-up w/ Dr. Lilly. STALIN MAI Jun 28, 2018 14:59
[2018-06-28 15:00] VITALS: BP 119/56
--- NOTE | 2018-06-28 15:02 | NUR ---
SW following. Discussed with RN, RN advised pt has eaten mashed potato and rice for lunch today. SW contacted Dr. Bro regarding pt discharge, Dr. Bro reported pt was not ready to leave today and requested one more night. Dr. Bro anticipating discharge home tomorrow (06/29/18). SW will continue to follow. RN notified.
[2018-06-28 19:00] VITALS: BP 138/81
[2018-06-28] MEDS: diphenhydrAMINE HCL 25 MG CAPSULE PO SCH (21:30)
[2018-06-28] MEDS: traZODone 50 MG TABLET. PO SCH (21:30)
[2018-06-28] MEDS: NORTRIPTYLINE 10 MG CAPSULE PO SCH (21:31)
[2018-06-28] MEDS: ENOXAPARIN 40 MG/0.4 ML SYRINGE. SQ SCH (21:32)
[2018-06-28 23:00] VITALS: BP 123/72
[2018-06-29 03:00] VITALS: BP 129/70
[2018-06-29] MEDS: GABAPENTIN 300 MG CAPSULE. PO SCH (06:14)
[2018-06-29 07:00] VITALS: BP 117/78
[2018-06-29] MEDS: SUCRALFATE 1 GM TABLET. PO SCH (08:29)
[2018-06-29] MEDS: azaTHIOprine 50 MG TABLET PO SCH (08:29)
[2018-06-29] MEDS: PANTOPRAZOLE 40 MG TABLET.DR. PO SCH (08:29)
[2018-06-29] MEDS: MAGNESIUM OXIDE 400 MG TABLET PO SCH (08:29)
[2018-06-29] MEDS: FERROUS SULFATE 325 MG TABLET. PO SCH (08:29)
[2018-06-29] MEDS: IV NORMAL SALINE 1000ML BAG 1,000 ML IV SCH (08:30)
[2018-06-29] MEDS ORDERED: PROC10TA57 PO (08:45)
--- NOTE | 2018-06-29 08:53 | PDOC3 ---
Discharge Summary Visit Information Date of Admission: Jun 25, 2018 Date of Discharge: Jun 29, 2018 Admitting Diagnosis: intractable abdominal pain Final Diagnosis 1. intractable nausea resolved 2. abdominal,esophageal discomfort improved hx mucosal irregularity of the esophagus suggestive of esophagitis. There is no significant hiatal hernia. There was incomplete relaxation of the lower esophageal sphincter. by ugi barium swallow 3.asymptomatic bacteriuria received 3 days of antibiotics. 4. Barry's esophagus 5. inflammatory bowel disease, 6. NAFLD Brief Hospital Course Allergies Allergies Coded Allergies Type Severity Reaction Last Updated Verified erythromycin base Allergy Intermediate 06/24/18 Yes nitrofurantoin Allergy Intermediate 06/24/18 Yes Vital Signs Vital Signs Date Time Temp Pulse Resp B/P (MAP) Pulse Ox O2 Delivery O2 Flow Rate FiO2 06/29/18 07:00 98.0 83 16 117/78 (91) 94 Room Air 98.0 Brief Hospital Course Ms. Peralta is a 43 old female who presented with the above mentioned abdominal discomfort. She was seen in consultation by GI and had a CT of the abdomen done as par to f her work up. Impression of the exam is as follows: Impression: No inflammatory change, obstruction, or mass. Nonobstructive left renal calculus. Low-attenuation at the gallbladder fossa within the liver probably represents focal fatty infiltration but it is too small to characterize. Correlate with prior exams if available to assess stability. No suspicious characteristics however suspected. Patient was placed on a bland diet and given IV fluids due to poor oral intake and dehydration. She was slowly introduced clear fluids and advanced her diet to full and subsequently was abld to tolerate rice and mashed potatoes. Patient unfortunately is unable to identify a trigger for her symptoms. She was initially started with Asacol that she took for ten years with good control of her symptoms. She was then switched to Lialda for brief time and then Apriso that she has continued to take until now. She also reports she was started with Remicade 5 years ago that she had continued to take until a year ago when it was stopped for what appears to be secondary non-response with antibody formation while she has been on azathioprine for the last couple of years. Patient was then started with Entyvio that was stooped after six months with primary non-response. She is now started with Stelara and had received the induction dose a month ago. Patient is currently admitted after she presented with sudden onset abdominal pain, nausea, vomiting of ingested material and diarrhea of one week duration. We provided reassurance and encouraged her to follow up with Dr Lilly in the outpatient setting. She was deemed appropriate for discharge. Signs and symptoms of alarm discussed prior to discharge. Father at bedside. Lungs clear to auscultation with good inspiratory effort CVS s1s2 Regular rhythm, no murmurs Abdomen soft and no peritoneal signs evident, no guarding or rebound Discharge Information Condition at Discharge: Improved Follow Up: Weeks ([address] Lilly) Disposition/Orders: D/C to Home Scheduled Azathioprine (Imuran) 50 Mg Tablet, 100 MG PO BID for UC, (Reported) Entered as Reported by: BHAVYA FAIR on 06/25/18157 Last Taken: Unknown Dose on Unknown Date & Time Last Action: Continued on 06/26/181121 by CEDRIC SCHMIDT MD Diphenhydramine Hcl (Benadryl) 25 Mg Capsule, 100 MG PO QHS for insomnia, ( Reported) Entered as Reported by: BHAVYA FAIR on 06/25/18157 Last Taken: Unknown Dose on Unknown Date & Time Last Action: Continued on 06/26/181121 by CEDRIC SCHMIDT MD Gabapentin (Gabapentin ) 300 Mg Capsule, 300 MG PO Q8HRS for NEUROGENIC PAIN, (Reported) Entered as Reported by: BHAVYA FAIR on 06/25/18157 Last Taken: Unknown Dose on Unknown Date & Time Last Action: Continued on 06/26/181121 by CEDRIC SCHMIDT MD Nortriptyline Hcl (Nortriptyline Hcl) 10 Mg Capsule, 2 CAP PO QHS for insomnia, #30 Ref 2 (Reported) Entered as Reported by: BHAVYA FAIR on 06/25/18157 Last Taken: Unknown Dose on Unknown Date & Time Last Action: Converted on 06/26/181121 by CEDRIC SCHMIDT MD Omeprazole (Omeprazole) 40 Mg Capsule.dr, 40 MG PO DAILY for GERD, (Reported) Entered as Reported by: BHAVYA FAIR on 06/25/18157 Last Taken: Unknown Dose on Unknown Date & Time Last Action: Converted on 06/26/181121 by CEDRIC SCHMIDT MD Riboflavin (Riboflavin) 100 Mg Tablet, 100 MG PO DAILY for OTC Vitamin B2 supplement, (Reported) Entered as Reported by: BHAVYA FAIR on 06/25/18157 Last Taken: Unknown Dose on Unknown Date & Time Last Action: Converted on 06/26/181121 by CEDRIC SCHMIDT MD Sucralfate (Carafate) 1 Gm Tablet, 1 TAB PO TIDAC for Barry's Esophagus, #120 Ref 3 (Reported) Entered as Reported by: BHAVYA FAIR on 06/25/18157 Last Taken: Unknown Dose on Unknown Date & Time Last Action: Converted on 06/26/181121 by CEDRIC SCHMIDT MD Trazodone Hcl (Trazodone Hcl) 50 Mg Tablet, 50 MG PO HS for insomnia, (Reported) Entered as Reported by: BHAVYA FAIR on 06/25/18157 Last Taken: Unknown Dose on Unknown Date & Time Last Action: Continued on 06/26/181121 by CEDRIC SCHMIDT MD Ustekinumab (Stelara) 90 Mg/1 Ml Disp.syrin, 90 MG SQ Q6WKS for UC, (Reported) Entered as Reported by: BHAVYA FAIR on 06/25/18157 Last Taken: Unknown Dose on Unknown Date & Time Last Action: HELD on 1121 by CEDRIC SCHMIDT MD [ferrous sulfate] , 65 MG PO DAILY for OTC iron supplement, (Reported) Entered as Reported by: BHAVYA FAIR on 06/25/18157 Last Taken: Unknown Dose on Unknown Date & Time Last Action: Converted on 06/26/181121 by CEDIRC SCHMIDT MD [magnesium oxide] , 200 MG PO DAILY for OTC magnesium supplement, (Reported) Entered as Reported by: BHAVYA FAIR on 06/25/18157 Last Taken: Unknown Dose on Unknown Date & Time Last Action: Converted on 06/26/181121 by CEDRIC SCHMIDT MD [potassium gluconate] , 550 MG PO DAILY for OTC potassium supplement, (Reported ) Entered as Reported by: BHAVYA FAIR on 06/25/18157 Last Taken: Unknown Dose on Unknown Date & Time Last Action: Converted on 06/26/181121 by CEDRIC SCHMIDT MD Scheduled PRN Eletriptan Hbr (Relpax) 20 Mg Tablet, 20 MG PO PRN PRN for MIGRAINE HEADACHE, ( Reported) Entered as Reported by: BHAVYA FAIR on 06/25/18 0158 Last Taken: Unknown Dose on Unknown Date & Time Last Action: Converted on 06/26/181121 by CEDRIC SCHMIDT MD Prochlorperazine Maleate (Compazine) 10 Mg Tablet, 10 MG PO Q8HRS PRN for NAUSEA for 10 Days, #30 Prescribed by: EMELY SALINAS MD on 06/29/18 0845 EMELY SALINAS MD Jun 29, 2018 08:53
--- NOTE | 2018-06-29 10:55 | NUR ---
SW following. Discussed with RN, RN advised no SW needs. Pt discharging home with self care today.
--- NOTE | 2018-06-29 12:00 | NUR ---
Discharge Note: GURWINDER RODRIGUEZ Discharge instructions and discharge home medications reviewed with Patient and a copy given. All questions have been answered and understanding verbalized. The following instructions and handouts were given: Migraines, abdominal pain, gastritis Discontinued lines and drains: peripheral IV line discontinued, no bleeding or bruising, catheter tip intact. Patient discharged to home for self-care, outpatient appt scheduled w/Dr. Lilly on 07/11. Taken out to private vehicle via WC by this telegraphic typewriter operator chief.
--- NOTE | 2018-06-29 12:28 | PDOC ---
Subjective: Subjective: Feeling better, ready to go home. Objective: Vital Signs: Vital Signs Date Time Temp Pulse Resp B/P (MAP) Pulse Ox O2 Delivery O2 Flow Rate FiO2 06/29/18 08:00 Room Air 06/29/18 07:00 98.0 83 16 117/78 (91) 94 98.0 PE: GEN: NAD, up to chair, dressed to leave NEURO/PSYCH: A & O 3 A/P: Dyspepsia, abd pain, diarrhea - improved H/o Barry's and IBD -- DC per primary, follow-up w/ Dr. Lilly. STALIN MAI Jun 29, 2018 12:28
== END 2018-06-29 12:00 | disposition home or self-care (01) | DRG 392 ==
LOC: ER 18:17 → 5 SOUTH 23:10
PROVIDERS: ADMIT Internal Medicine; ATTEND Internal Medicine
DX: K20.9 Esophagitis, unspecified (principal); K50.90 Crohn's disease, unspecified, without complications; N20.0 Calculus of kidney; K76.0 Fatty (change of) liver, not elsewhere classified; K22.70 Barrett's esophagus without dysplasia; G43.909 Migraine, unspecified, not intractable, without status migrainosus; E66.9 Obesity, unspecified; E86.0 Dehydration; Z90.49 Acquired absence of other specified parts of digestive tract; Z88.1 Allergy status to other antibiotic agents; Z88.8 Allergy status to other drugs, medicaments and biological substances; Z82.49 Family history of ischemic heart disease and other diseases of the circulatory system; Z68.36 Body mass index [BMI] 36.0-36.9, adult; K52.3 Indeterminate colitis
CPT/HCPCS: 36415; 74177; 80053; 81001; 82962; 83690; 83735; 84484; 84702; 85007; 85025; 87086; 87493; 93005; 96361; 96372; 96374; 96375; 96376; C9113; J0500; J0696; J1650; J2405; J2765; J3010; J7030; J7500; Q0163; Q9967; 99285-25

== ENCOUNTER → 2018-07-20 | Outpatient (CLI) | payer OTHER ==
[2018-06-29 07:00] VITALS: BP 117/78
[~2018-07-20] MED LIST: AZAT50TA20 PO; DIPH25CA58 PO; ELET20TA PO; GABA300C18 PO; NORT10CA PO; OMEP40CA5 PO; PROC10TA57 PO; RIBO100T PO; SUCR1TAB35 PO; TRAZ-118 PO; USTE90DI SQ; ferrous sulfate PO; magnesium oxide PO; potassium gluconate PO
--- NOTE | 2018-07-20 14:06 | RAD ---
Radionuclide gastric emptying study, 07/20/2018: History: Bloating The study was performed utilizing a solid test meal radiolabeled with 2 mCi of technetium 99m sulfur colloid. The following gastric retention values were obtained: 1 hour-64% (normal is less than 90%) 2 hours-54% (normal is less than 60%) 3 hours-56% (normal is less than 30%) 4 hours-47% (normal is less than 10%) An abnormal T1/2 of 156 minutes was also calculated. IMPRESSION: Delayed gastric emptying as described above.
== END | disposition home or self-care (01) ==
LOC: NM 07-20 07:30
PROVIDERS: ATTEND Internal Medicine Gastroenterology
DX: K30 Functional dyspepsia (principal); J45.909 Unspecified asthma, uncomplicated; Z88.8 Allergy status to other drugs, medicaments and biological substances
CPT/HCPCS: 78264; A9541

== ENCOUNTER → 2019-01-12 | Outpatient (CLI) | payer OTHER ==
[~2019-01-12] MED LIST changes: +BARIUM SULFATE 40% (APPLE) 148 GM PWD. PO ONE
--- NOTE | 2019-01-12 17:41 | RAD ---
Exam: Video Swallowing Study Date: 01/12/2019 History: Clinical suspicion for aspiration Comparison: None Procedure: Video fluoroscopy of the neck was performed from the lateral projection following ingestion of various consistency barium which was administered by the speech pathologist. Fluoroscopy time: 0.8 minutes Findings/ Impression: There was no laryngeal penetration or aspiration of thin, puree, solid and mixed consistency barium observed. Electronically signed by: Lee Reyes MD (01/12/2019 5:38 PM) [facility]
== END | disposition home or self-care (01) ==
LOC: RAD 12:15
PROVIDERS: ATTEND Physician Assistant
DX: R13.10 Dysphagia, unspecified (principal)
CPT/HCPCS: 74230

== ENCOUNTER → 2019-03-16 | Day surgery (SDC) | payer OTHER ==
[~2019-03-16] MED LIST changes: +ADAL40PE SQ; -BARIUM SULFATE 40% (APPLE) 148 GM PWD. PO ONE; +BUPR150T8 PO; +HYDROmorphone 2 MG/ML VIAL IV PRN; +IV RINGERS,LACTATED 1000ML 1,000 ML IV SCH; +LIDOCAINE 1% PF 2 ML VIAL. ID PRN; +LIDOCAINE 2% PF 5 ML VIAL. ONE; +MORPHINE SULFATE 2 MG/ML VIAL. IV PRN; +OMEP40CA45 PO; -OMEP40CA5 PO; +ONDANSETRON PF 4 MG/2 ML VIAL. IV PRN; +PROCHLORPERAZINE 10 MG/2 ML VIAL. IV PRN; +PROPOFOL 40 ML IV ONE; +fentaNYL PF VIAL 100 MCG/2 ML VIAL IV PRN
[2019-03-16 10:24] VITALS: BP 134/81
--- NOTE | 2019-03-17 15:07 | PATHOLOGY ---
[facility] Accession Number: [id number] . 01 Material submitted: . PART A: small bowel - SMALL BOWEL BIOPSY PART B: stomach - GASTRIC ANTRUM BODY BIOPSY PART C: esophagus - DISTAL ESOPHAGUS BIOPSY. Modifiers: distal PART D: esophagus - MID-ESOPHAGUS BIOPSY. Modifiers: mid . 01 Clinical history: . Pre-OP DX: Dysphagia, Hx of Barry's Post-OP DX: Rule out Barry's, inflammation . 02 Diagnosis: A. Small bowel biopsies, duodenum: - No significant pathologic abnormalities. . B. Gastric biopsies, gastric antrum and gastric body: - Chronic gastritis, mild. . C. Esophageal biopsies, distal esophagus: - Segments of gastric mucosa showing mild to moderate chronic inflammation. . D. Esophageal biopsies, mid-esophagus: - Segments of squamous esophageal mucosa showing no diagnostic abnormalities. . (JPM:emerita; 03/17/2019) [facility] 03/17/2019 1103 Local . 02 Comment: Sections of the small bowel biopsy reveal segments of duodenal mucosa. Where best oriented, the mucosal villi show no sprue-like changes or significant inflammatory changes. . Sections of the gastric biopsy reveal segments of gastric antral and gastric body mucosa which show congestion and mild chronic inflammation. A properly controlled immunoperoxidase stain for Helicobacter is negative for Helicobacter organisms. . Sections of the distal esophageal biopsy reveal multiple segments of gastric mucosa showing mild to focal moderate chronic inflammation. There is no squamous esophageal mucosa. There is no evidence of Barry's change, dysplasia, or malignancy. . Sections of the mid esophageal biopsy reveal segments of squamous esophageal mucosa showing no diagnostic abnormalities. There is no evidence of Brary's change, dysplasia, or malignancy. . (JPM:emerita; 03/17/2019) . . Special stain performed: Immunoperoxidase stain for Helicobacter on B1. . 02 Electronically signed: . Carlos Lozano MD, Pathologist NPI- [id number] . 01 Gross description: . A. Received in formalin labeled "Vogts, Marimar, small bowel BX," are 4 segments of shultz soft tissue measuring 1.3 x 0.9 x 0.3 cm in aggregate dimensions and ranging from 0.3 to 0.5 cm in maximum dimension. The specimen is submitted entirely in cassette A1. . B. Received in formalin labeled "Vogts, Marimar, gastric antrum body BX," are 4 segments of shultz soft tissue measuring 1.2 x 0.7 x 0.3 cm in aggregate dimensions and ranging from 0.3 to 0.7 cm in maximum dimension. The specimen is submitted entirely in cassette B1. . C. Received in formalin labeled "Vogts, Marimar, distal esophagus BX," are 5 segments of shultz soft tissue measuring 1.3 x 1.0 x 0.3 cm in aggregate dimensions and ranging from 0.4 to 0.6 cm in maximum dimension. The specimen is submitted entirely in cassette C1. . D. Received in formalin labeled "Vogts, Marimar, mid esophagus BX," are 2 segments of shultz soft tissue measuring 0.8 x 0.2 x 0.1 cm in aggregate dimensions and ranging from 0.3 to 0.5 cm in maximum dimension. The specimen is submitted entirely in cassette D1. (TSD; 03/16/2019) TOB/TOB 03/16/2019 1631 Local . 02 Pathologist provided ICD-10: K29.50, K20.9 . 02 CPT . 259121, 587401, 935218, [id number], [id number] Specimen Comment: A courtesy copy of this report has been sent to [phone], [phone] Specimen Comment: [id number] Specimen Comment: Report sent to and Performed at: 01 [facility] [address], [place] [id number] MD Alex Irwin MD Phone: [phone] Performed at: 02 [facility] [address], [place] [id number] MD Carlos Lozano MD Phone: [phone]
== END ==
LOC: ENDOS 08:30
PROVIDERS: ATTEND Internal Medicine Gastroenterology
DX: R13.10 Dysphagia, unspecified (principal); K29.50 Unspecified chronic gastritis without bleeding; K21.0 Gastro-esophageal reflux disease with esophagitis; F32.9 Major depressive disorder, single episode, unspecified; F15.90 Other stimulant use, unspecified, uncomplicated; Z88.8 Allergy status to other drugs, medicaments and biological substances; Z88.3 Allergy status to other anti-infective agents; Z91.040 Latex allergy status; Z87.891 Personal history of nicotine dependence; Z90.49 Acquired absence of other specified parts of digestive tract; Z98.890 Other specified postprocedural states
CPT/HCPCS: 43239; 43450; 81025; 88305; 88342; J2001; J2704

== ENCOUNTER 2019-03-18 19:46 | Emergency (ER) | payer OTHER ==
[~2019-03-18] VITALS: Ht 170.2 cm; Wt 111.1 kg
[~2019-03-18 19:46] MED LIST changes: -HYDROmorphone 2 MG/ML VIAL IV PRN; -IV RINGERS,LACTATED 1000ML 1,000 ML IV SCH; -LIDOCAINE 1% PF 2 ML VIAL. ID PRN; -LIDOCAINE 2% PF 5 ML VIAL. ONE; -MORPHINE SULFATE 2 MG/ML VIAL. IV PRN; -ONDANSETRON PF 4 MG/2 ML VIAL. IV PRN; -PROCHLORPERAZINE 10 MG/2 ML VIAL. IV PRN; -PROPOFOL 40 ML IV ONE; -fentaNYL PF VIAL 100 MCG/2 ML VIAL IV PRN
[2019-03-18 20:20] VITALS: BP 125/66
--- NOTE | 2019-03-18 20:33 | PHYS DOC ---
Past Medical History Past Medical History: Migraines, Other Additional Past Medical Histor: CHRON'S,ULCERATIVE COLITIS,ALVAREZ'S ESOPHAGUS,LEAKY HEART VALVE Past Surgical History: Cholecystectomy, Tonsillectomy, Other Additional Past Surgical Histo: EYE SURG,LEEP Alcohol Use: None Drug Use: None Adult General Chief Complaint Chief Complaint: MULTIPLE COMPLAINTS [facility] HPI 44-year-old female presents to the emergency department with complaints of sore throat, lymphadenopathy in her neck, body aches. Patient states this started today. She denies any fever, nausea, vomiting. She does describe occasional cough as well as some shortness of breath. Patient describes sick contacts with her daughter who had mono within the last month. Patient has underlying medical history of ulcerative colitis, Crohn's disease, fibromyalgia. Nothing makes her symptoms worse, nothing makes her symptoms better. Review of Systems Review of Systems Constitutional: Denies fever or chills [] Eyes: Denies change in visual acuity, redness, or eye pain [] HENT: sore throat Respiratory: occassional cough Cardiovascular: No additional information not addressed in HPI [] GI: Denies abdominal pain, nausea, vomiting, bloody stools or diarrhea [] : Denies dysuria or hematuria [] Musculoskeletal: body aches Integument: Denies rash or skin lesions [] Neurologic: Denies headache, focal weakness or sensory changes [] Endocrine: Denies polyuria or polydipsia [] All other systems were reviewed and found to be within normal limits, except as documented in this note. Allergies Allergies Allergies Coded Allergies Type Severity Reaction Last Updated Verified erythromycin base Allergy Intermediate 03/16/19 Yes nitrofurantoin Allergy Intermediate 06/24/18 Yes Physical Exam Physical Exam Constitutional: Well developed, well nourished, no acute distress, non-toxic appearance. [] HENT: Normocephalic, atraumatic, bilateral external ears normal, oropharynx moist, no oral exudates, nose normal. [] Eyes: PERRLA, EOMI, conjunctiva normal, no discharge. [] Neck: Normal range of motion, tenderness associated with palpation, supple, no stridor. [] Cardiovascular:Heart rate regular rhythm, no murmur [] Lungs & Thorax: Bilateral breath sounds clear to auscultation [] Abdomen: Bowel sounds normal, soft, no tenderness, no masses, no pulsatile masses. [] Skin: Warm, dry, no erythema, no rash. [] Extremities: No tenderness, no edema. [] Neurologic: Alert and oriented X 3, no focal deficits noted. [] Psychologic: Affect normal, judgement normal, mood normal. [] Current Patient Data Vital Signs Vital Signs Date Time Temp Pulse Resp B/P (MAP) Pulse Ox O2 Delivery O2 Flow Rate FiO2 03/18/19 20:20 97.6 87 17 125/66 (85) 95 Room Air 97.6 Lab Values Laboratory Tests Test 03/18/19 20:29 03/18/19 21:15 Influenza Type A Antigen Negative (NEGATIVE) Influenza Type B Antigen Negative (NEGATIVE) Heterophil Agglutinins Negative (NEGATIVE) EKG EKG [] Radiology/Procedures Radiology/Procedures [] Course & Med Decision Making Course & Med Decision Making Pertinent Labs and Imaging studies reviewed. (See chart for details) []44-year-old female presents to the emergency department with complaints of sore throat, lymphadenopathy in her neck, body aches. Patient states this started today. She denies any fever, nausea, vomiting. She does describe occasi onal cough as well as some shortness of breath. Patient describes sick contacts with her daughter who had mono within the last month. Patient has underlying medical history of ulcerative colitis, Crohn's disease, fibromyalgia. Nothing makes her symptoms worse, nothing makes her symptoms better. Labs reviewed - no evidence of acute infectious process Strep negative/Influenza negative/Caswell negative Discussed with patient - viral in nature Recommend follow up with PCP as needed Return precautions provided Dragon Disclaimer Dragon Disclaimer This electronic medical record was generated, in whole or in part, using a voice recognition dictation system. Departure Departure Impression: Primary Impression: Viral syndrome Disposition: 01 HOME, SELF-CARE Condition: STABLE Referrals: KAREN ROMERO MD (PCP) Patient Instructions: Viral Syndrome Additional Instructions: Recommend follow up with PCP 3 - 5 days Return to the ER with worsening symptoms, intractable pain, fever, altered mental status Tylenol/Motrin as needed for pain ALIREZA CANTOR MD Mar 18, 2019 20:33
[2019-03-18 21:04] LABS: INFLUENZA A PATIENT NEGATIVE (NEGATIVE); INFLUENZA B PATIENT NEGATIVE (NEGATIVE)
[2019-03-18 21:37] LABS: MONONUCLEOSIS PATIENT NEGATIVE (NEGATIVE)
== END 2019-03-18 22:30 | disposition home or self-care (01) ==
LOC: ER 19:46
DX: B34.9 Viral infection, unspecified (principal); R59.1 Generalized enlarged lymph nodes; M79.10 Myalgia, unspecified site; G43.909 Migraine, unspecified, not intractable, without status migrainosus; Z88.1 Allergy status to other antibiotic agents; Z88.8 Allergy status to other drugs, medicaments and biological substances
CPT/HCPCS: 86308; 87070; 87804; 87880; 99284

== ENCOUNTER → 2019-10-06 | Outpatient (CLI) | payer OTHER ==
[~2019-10-06] MED LIST changes: +IOHEXOL 300 MG/ML 100ML VIAL. IV ONE
--- NOTE | 2019-10-06 13:14 | RAD ---
CT scan of the abdomen with contrast (CT enterography) 10/06/2019 CLINICAL HISTORY: Right upper quadrant abdominal pain. History of Crohn's disease. TECHNIQUE: After the intravenous administration of 75 cc of Omnipaque 300 and oral administration 75 cc of the lumen, contiguous, 0.625 mm axial sections were obtained through the abdomen and pelvis. 2 mm reconstructed sagittal, axial coronal images were obtained. One or more of the following individualized dose reduction techniques were utilized for this study: 1. Automated exposure control. 2. Adjustment of the mA and/or kV according to patient size. 3. Use of iterative reconstruction technique. FINDINGS: Comparison study is dated 06/24/2018. Images through the lung bases demonstrate minimal dependent subsegmental atelectasis bilaterally. Decreased attenuation of the liver parenchyma is seen consistent with fatty infiltration. The spleen, pancreas, adrenal glands and right kidney are within normal limits. A 5 mm nonobstructing calculus is seen involving the superior pole of the left kidney. This is unchanged. The abdominal aorta tapers normally. Surgical clips are seen within the gallbladder fossa consistent with a cholecystectomy. No free fluid or free air is seen within the abdomen. Air and stool are seen throughout the colon. The appendix is well-visualized and is within normal limits. The small bowel is normal in caliber. No area of wall thickening is seen. No inflammatory changes are seen within the adjacent fat. No abnormal fluid collection is noted. No fistula is seen. Images through the pelvis demonstrate urinary bladder distended with urine. No adnexal mass is seen. No free fluid is noted. No pelvic or inguinal lymphadenopathy is noted. Minimal S-shaped curvature of the thoracolumbar spine is seen. Degenerative changes are seen involving the lower thoracic and throughout the lumbar spine along with both hips. IMPRESSION: No acute abnormality is seen. Electronically signed by: Johnnie Riddle MD (10/06/2019 1:11 PM) [id number]
== END | disposition home or self-care (01) ==
LOC: CT 08:45
PROVIDERS: ATTEND Internal Medicine Gastroenterology
DX: N20.0 Calculus of kidney (principal); N32.89 Other specified disorders of bladder; M43.8X5 Other specified deforming dorsopathies, thoracolumbar region; M47.815 Spondylosis without myelopathy or radiculopathy, thoracolumbar region
CPT/HCPCS: 74170; Q9967

== ENCOUNTER → 2019-10-25 | Outpatient (CLI) | payer OTHER ==
[~2019-10-25] MED LIST changes: -IOHEXOL 300 MG/ML 100ML VIAL. IV ONE
== END | disposition home or self-care (01) ==
LOC: LAB 12:42
PROVIDERS: ATTEND Internal Medicine Gastroenterology
DX: Z01.818 Encounter for other preprocedural examination (principal); Z11.59 Encounter for screening for other viral diseases; K50.90 Crohn's disease, unspecified, without complications
CPT/HCPCS: U0003-CS

== ENCOUNTER → 2019-11-01 | Outpatient (CLI) | payer OTHER | END | disposition home or self-care (01) | LOC: LAB 12:24 | PROVIDERS: ATTEND Internal Medicine Gastroenterology | DX: Z11.59 Encounter for screening for other viral diseases (principal) | CPT/HCPCS: U0003-CS ==

== ENCOUNTER → 2019-11-06 | Day surgery (SDC) | payer OTHER ==
[~2019-11-06] MED LIST changes: +IV RINGERS,LACTATED 1000ML 1,000 ML IV SCH; +LIDOCAINE 2% PF 5 ML VIAL. ONE; +PROPOFOL 10 MG/ML (20ML) VIAL. IV ONE
[2019-11-06 10:48] VITALS: BP 128/78
--- NOTE | 2019-11-06 11:04 | PREOP HP ---
DATE OF SERVICE: 11/06/2019 PREOPERATIVE HISTORY AND PHYSICAL REQUESTING PHYSICIAN: Kareem Salgado MD. PRIMARY CARE PHYSICIAN: Kareem Salgado MD. REASON FOR PROCEDURE: Crohn's disease. HISTORY OF PRESENT ILLNESS: This is a 44-year-old female, who presents today for a colonoscopy to evaluate her Crohn's disease. ALLERGIES: 1. ELOSONE AND MACROLIDES CAUSE VOMITING. 2. MACROBID. PAST MEDICAL HISTORY: Crohn's disease. MEDICATIONS: The patient's MAR reviewed. FAMILY MEDICAL HISTORY: No colorectal cancer. SOCIAL HISTORY: Denies tobacco, alcohol, or IV drug abuse. REVIEW OF SYSTEMS: A 13-point review of systems was done. It is positive as per HPI and otherwise negative. PHYSICAL EXAMINATION: GENERAL: She is a well-developed, well-nourished female, in no apparent distress. HEENT: Oropharynx is clear. CARDIOVASCULAR: S1, S2. LUNGS: Clear. ABDOMEN: Normoactive bowel sounds, soft, nontender, nondistended. EXTREMITIES: No edema. NEUROLOGIC: Awake, alert, oriented x 3. ASSESSMENT AND PLAN: Crohn's disease. The risks and benefits of colonoscopy including bleeding, perforation, non-diagnosis, and sedation were explained and she has agreed to proceed. BETTINA DANIEL MD DR: MONICA/marybeth JOB#: [id number] / [id number]
--- NOTE | 2019-11-07 18:06 | PATHOLOGY ---
[facility] Accession Number: [id number] . 01 Material submitted: . PART A: ileum - TERMINAL ILEUM BIOPSY PART B: cecum - CECUM BIOPSY PART C: colon - ASCENDING COLON BIOPSY. Modifiers: ascending PART D: colon - TRANSVERSE COLON BIOPSY. Modifiers: transverse PART E: colon - DESCENDING COLON BIOPSY. Modifiers: descending PART F: colon - SIGMOID COLON BIOPSY. Modifiers: sigmoid PART G: rectum - RECTAL BIOPSY . 01 Clinical history: . Crohn's, RLQ pain, rectal bleed . 02 Diagnosis: A. Small intestine mucosa, terminal ileum biopsies: - Nodular lymphoid hyperplasia of Peyer's patch. . B. Colonic mucosa, cecal biopsies: - No sigificant pathologic abnormalities. . C. Colonic mucosa, ascending colon biopsies: - No sigificant pathologic abnormalities. . D. Colonic mucosa, tranverse colon biopsies: - No sigificant pathologic abnormalities. . E. Colonic mucosa, descending colon biopsies: - No sigificant pathologic abnormalities. . F. Colonic mucosa, sigmoid colon biopsies: - No sigificant pathologic abnormalities. . G. Colorectal mucosa, rectal biopsies: - No sigificant pathologic abnormalities. (JPM:alida; 11/07/2019) [facility] [place] 11/07/2019 1134 Local . 02 Comment: Sections of the terminal ileum biopsy reveal segments of small intestine mucosa showing nodular lymphoid hyperplasia of Peyer's patch. There are no sprue-like changes. There is no evidence of active inflammatory bowel disease. . Sections of the cecal, ascending colon, transverse colon, descending colon, sigmoid colon, and rectal biopsies appear similar and reveal segments of colonic and colorectal mucosa showing no sigificant pathologic abnormalities. There is no evidence of active chronic inflammatory bowel disease. There is no evidence of dysplasia or malignancy. (JPM:alida; 11/07/2019) . 02 Electronically signed: . Carlos Lozano MD, Pathologist NPI- [id number] . 01 Gross description: . A. The specimen is received in formalin, labeled "Vogts, Marimar, terminal ileum BX" and consists of multiple fragments of shultz tissue measuring 0.9 x 0.9 x 0.2 cm in aggregate which are entirely submitted in A1. . B. The specimen is received in formalin, labeled " Vogts, Marimar, cecum BX" and consists of multiple fragments of shultz tissue measuring 1.1 x 0.5 x 0.2 cm in aggregate which are entirely submitted in B1. . C. The specimen is received in formalin, labeled " Vogts, Marimar, ascending colon BX" and consists of multiple fragments of shultz tissue measuring 1.0 x 0.5 x 0.2 cm in aggregate which are entirely submitted in C1. . D. The specimen is received in formalin, labeled " Vogts, Marimar, transverse colon BX" and consists of multiple fragments of shultz tissue measuring 0.9 x 0.4 x 0.2 cm in aggregate which are entirely submitted in D1. . E. The specimen is received in formalin, labeled " Vogts, Marimar, descending colon BX" and consists of multiple fragments of shultz tissue measuring 1.1 x 0.5 x 0.2 cm in aggregate which are entirely submitted in E1. . F. The specimen is received in formalin, labeled " Vogts, Marimar, sigmoid colon BX" and consists of multiple fragments of shultz tissue measuring 1.0 x 0.5 x 0.2 cm in aggregate which are entirely submitted in F1. . G. The specimen is received in formalin, labeled " Vogts, Marimar, rectal BX" and consists of 2 fragments of pink-shultz tissue measuring 0.1 x 0.1 cm and 0.2 x 0.2 cm which are entirely submitted in G1. (SDY; 11/06/2019) [facility]U 11/06/2019 1829 Local . 02 Pathologist provided ICD-10: K50.90, R10.31, K62.5 . 02 CPT . 984056, 454036, 853250, 051058, 463419, 027384, [id number] Specimen Comment: A courtesy copy of this report has been sent to [phone], [phone] Specimen Comment: [id number] Specimen Comment: Report sent to / DR ROMERO Performed at: [address] [facility] [id number] MD Alex Irwin MD Phone: [phone] Performed at: [facility] [address] [place], [place] [id number] MD Carlos Lozano MD Phone: [phone]
== END ==
LOC: SURG 08:38
PROVIDERS: ATTEND Internal Medicine Gastroenterology
DX: K62.5 Hemorrhage of anus and rectum (principal); K63.89 Other specified diseases of intestine; F32.9 Major depressive disorder, single episode, unspecified; K64.0 First degree hemorrhoids; Z88.8 Allergy status to other drugs, medicaments and biological substances; Z91.040 Latex allergy status; Z98.890 Other specified postprocedural states
CPT/HCPCS: 45380; 81025; J2704

== ENCOUNTER 2020-08-24 16:13 | Emergency (ER) | payer OTHER ==
[~2020-08-24] VITALS: Ht 170.2 cm; Wt 104.5 kg
[~2020-08-24 16:13] MED LIST changes: -IV RINGERS,LACTATED 1000ML 1,000 ML IV SCH; -LIDOCAINE 2% PF 5 ML VIAL. ONE; -PROPOFOL 10 MG/ML (20ML) VIAL. IV ONE
--- NOTE | 2020-08-24 16:46 | RAD ---
Exam: Chest one view INDICATION: Chest pain TECHNIQUE: Frontal view of the chest Comparisons: None FINDINGS: The cardiomediastinal silhouette and pulmonary vessels are within normal limits. The lung and pleural spaces are clear. IMPRESSION: No acute cardiopulmonary process. Electronically signed by: Karen Smith MD (08/24/2020 4:43 PM) [place]
[2020-08-24 17:01] LABS: BASO % 1 % (0-3); EOS # 0.1 x10^3/uL (0.0-0.7); EOS % 1 % (0-3); HEMATOCRIT 40.4 % (36.0-47.0); HEMOGLOBIN 13.4 g/dL (12.0-15.5); LYMPH % 14 % (24-48); MEAN CORPUSCULAR HEMOGLOBIN 31 pg (25-35); MEAN CORPUSCULAR HGB CONC 33 g/dL (31-37); MEAN CORPUSCULAR VOLUME 93 fL (79-100); MONO # 0.7 x10^3/uL (0.0-1.1); MONO % 10 % (0-9); NEUT # 5.2 x10^3/uL (1.8-7.7); NEUT % 75 % (31-73); PLATELET COUNT 314 x10^3/uL (140-400); RED BLOOD COUNT 4.33 x10^6/uL (3.50-5.40)
[2020-08-24 17:16] LABS: CALCIUM 9.5 mg/dL (8.5-10.1); CREATININE 1.2 mg/dL (0.6-1.0); GFR 48.4
[2020-08-24 17:23] LABS: ALBUMIN 3.6 g/dL (3.4-5.0); ALBUMIN/GLOBULIN RATIO 0.8 (1.0-1.7); TOTAL BILIRUBIN 0.2 mg/dL (0.2-1.0); TOTAL PROTEIN 8.3 g/dL (6.4-8.2)
--- NOTE | 2020-08-24 17:39 | PHYS DOC ---
Past Medical History Past Medical History: Migraines, Other Additional Past Medical Histor: CHRON'S,ULCERATIVE COLITIS,ALVAREZ'S ESOPHAGUS,LEAKY HEART VALVE (NEFTALI FERREIRA DO) Past Surgical History: Cholecystectomy, Tonsillectomy, Other Additional Past Surgical Histo: EYE SURG,LEEP (NEFTALI FERREIRA DO) Smoking Status: Never Smoker Alcohol Use: None Drug Use: None (NEFTALI FERREIRA DO) General Adult EDM: Chief Complaint: CHEST PAIN HPI: HPI: Patient is a 45 year old female who presented to ER due to left-sided chest pain that radiated to her neck since last night. Patient described the pain as pressure and aching in nature. Patient denies any cough or any fever. Patient denies any abdominal pain, no nausea vomiting. Patient denies any trouble breathing. Patient denies any history of blood clot disorder, denies any history of coronary artery disease. Patient has no immediate family history of coronary disease. Patient denied history of hypertension, no history of diabetic. Patient denies any recent travel or operation. Patient denies smoking, denies any COVID-19 exposure recently. (NEFTALI FERREIRA DO) Review of Systems: Review of Systems: Constitutional: Denies fever or chills. [] Eyes: Denies change in visual acuity. [] HENT: Denies nasal congestion or sore throat. [] Respiratory: Denies cough or shortness of breath. [] Cardiovascular: Positive for chest pain, no edema. GI: Denies abdominal pain, nausea, vomiting, bloody stools or diarrhea. [] : Denies dysuria. [] Musculoskeletal: Denies back pain or joint pain. [] Integument: Denies rash. [] Neurologic: Denies headache, focal weakness or sensory changes. [] Endocrine: Denies polyuria or polydipsia. [] Lymphatic: Denies swollen glands. [] Psychiatric: Denies depression or anxiety. [] (NEFTALI FERREIRA DO) Heart Score: C/O Chest Pain: Yes HEART Score for Chest Pain: HEART Score for Chest Pain Response (Comments) Value Age >45 - < 65 1 Risk Factors 1 or 2 Risk Factors 1 Troponin < Normal Limit 0 Total 2 Risk Factors: Risk Factors: DM, Current or recent (<one month) smoker, HTN, HLP, family history of CAD, obesity. Risk Scores: Score 0 - 3: 2.5% MACE over next 6 weeks - Discharge Home Score 4 - 6: 20.3% MACE over next 6 weeks - Admit for Clinical Observation Score 7 - 10: 72.7% MACE over next 6 weeks - Early Invasive Strategies (NEFTALI FERREIRA DO) Allergies: Allergies: Allergies Coded Allergies Type Severity Reaction Last Updated Verified erythromycin base Allergy Intermediate 11/06/19 Yes nitrofurantoin Allergy Intermediate 11/06/19 Yes (NEFTALI FERREIRA DO) Physical Exam: PE: Constitutional: Well developed, well nourished, no acute distress, non-toxic appearance. [] HENT: Normocephalic, atraumatic, bilateral external ears normal, oropharynx moist, no oral exudates, nose normal. [] Eyes: PERRLA, EOMI, conjunctiva normal, no discharge. [] Neck: Normal range of motion, no tenderness, supple, no stridor. [] Cardiovascular:Heart rate regular rhythm, no murmur [] Lungs & Thorax: Bilateral breath sounds clear to auscultation [] Abdomen: Bowel sounds normal, soft, no tenderness, no masses, no pulsatile masses. [] Skin: Warm, dry, no erythema, no rash. [] Back: No tenderness, no CVA tenderness. [] Extremities: No tenderness, no cyanosis, no clubbing, ROM intact, no edema. [] Neurologic: Alert and oriented X 3, normal motor function, normal sensory function, no focal deficits noted. [] Psychologic: Affect normal, judgement normal, mood normal. [] (NEFTALI FERREIRA DO) Current Patient Data: Labs: Laboratory Tests Test 08/24/20 16:45 White Blood Count 7.0 x10^3/uL (4.0-11.0) Red Blood Count 4.33 x10^6/uL (3.50-5.40) Hemoglobin 13.4 g/dL (12.0-15.5) Hematocrit 40.4 % (36.0-47.0) Mean Corpuscular Volume 93 fL (79-100) Mean Corpuscular Hemoglobin 31 pg (25-35) Mean Corpuscular Hemoglobin Concent 33 g/dL (31-37) Red Cell Distribution Width 15.0 % (11.5-14.5) H Platelet Count 314 x10^3/uL (140-400) Neutrophils (%) (Auto) 75 % (31-73) H Lymphocytes (%) (Auto) 14 % (24-48) L Monocytes (%) (Auto) 10 % (0-9) H Eosinophils (%) (Auto) 1 % (0-3) Basophils (%) (Auto) 1 % (0-3) Neutrophils # (Auto) 5.2 x10^3/uL (1.8-7.7) Lymphocytes # (Auto) 1.0 x10^3/uL (1.0-4.8) Monocytes # (Auto) 0.7 x10^3/uL (0.0-1.1) Eosinophils # (Auto) 0.1 x10^3/uL (0.0-0.7) Basophils # (Auto) 0.0 x10^3/uL (0.0-0.2) Sodium Level 138 mmol/L (136-145) Potassium Level 4.0 mmol/L (3.5-5.1) Chloride Level 104 mmol/L (98-107) Carbon Dioxide Level 25 mmol/L (21-32) Anion Gap 9 (6-14) Blood Urea Nitrogen 15 mg/dL (7-20) Creatinine 1.2 mg/dL (0.6-1.0) H Estimated GFR (Cockcroft-Gault) 48.4 BUN/Creatinine Ratio 13 (6-20) Glucose Level 134 mg/dL (70-99) H Calcium Level 9.5 mg/dL (8.5-10.1) Total Bilirubin 0.2 mg/dL (0.2-1.0) Aspartate Amino Transferase (AST) 34 U/L (15-37) Alanine Aminotransferase (ALT) 28 U/L (14-59) Alkaline Phosphatase 125 U/L (46-116) H Troponin I Quantitative < 0.017 ng/mL (0.000-0.055) LC-Zjd-V-Type Natriuretic Peptide 19 pg/mL (0-124) Total Protein 8.3 g/dL (6.4-8.2) H Albumin 3.6 g/dL (3.4-5.0) Albumin/Globulin Ratio 0.8 (1.0-1.7) L Lipase 46 U/L (73-393) L Laboratory Tests 08/24/20 16:45 Laboratory Tests 08/24/20 16:45 Vital Signs: Vital Signs Date Time Temp Pulse Resp B/P (MAP) Pulse Ox O2 Delivery O2 Flow Rate FiO2 08/24/20 16:26 97.7 99 18 135/77 (96) 98 Room Air 97.7 (NEFTALI FERREIRA DO) EKG: EKG: EKG was done at 1620, heart rate 102 bpm, sinus tachycardia, no ST segment elevation, normal axis (NEFTALI FERREIRA DO) Radiology/Procedures: Radiology/Procedures: [][facility] [address] [place] [address] IMAGING REPORT Signed PATIENT: GURWINDER RODRIGUEZ ACCOUNT: [id number] : 1975 LOCATION: ER AGE: 45 SEX: F EXAM STATUS: PRE ER ORD. PHYSICIAN: ENFTALI FERREIRA DO REASON: CHEST PAIN PROCEDURE: PORTABLE CHEST 1V Exam: Chest one view INDICATION: Chest pain TECHNIQUE: Frontal view of the chest Comparisons: None FINDINGS: The cardiomediastinal silhouette and pulmonary vessels are within normal limits. The lung and pleural spaces are clear. IMPRESSION: No acute cardiopulmonary process. Electronically signed by: Karen English MD (08/24/2020 4:43 PM) [facility] DICTATED and SIGNED BY: KAREN ENGLISH MD DATE: 08/24/20 [id number] (NEFTALI FERREIRA DO) Radiology/Procedures: Exam: CT of chest with contrast INDICATION: Chest pain, short of air TECHNIQUE: Sequential axial images through the chest obtained following the administration of 80 mL Isovue-370 IV contrast. Sagittal and coronal reformatted images were reconstructed from the axial data and reviewed. 3-D reformatted images were reconstructed from the axial data and reviewed. Exposure: One or more of the following in the visualized dose reduction techniques were utilized for this examination: 1. Automated exposure control 2. Adjustment of the MA and/or KV according to patient size 3. Use of iterative of reconstructive technique Comparisons: Chest x-ray same day FINDINGS: Visualized portions of the thyroid are unremarkable. No enlargement is not lymph nodes are identified. Heart size is normal. No pericardial effusion. Thoracic aorta has a normal cours e and caliber. Pulmonary artery is not enlarged. No pulmonary embolus identified within the main, lobar or segmental pulmonary arteries. Airways are patent. No consolidation or pneumothorax. No suspicious lung nodules. No pleural effusion or thickening. Mild diffuse hepatic steatosis. No suspicious osseous lesions or acute fractures. IMPRESSION: 1. No pulmonary embolus identified within the main, lobar or segmental pulmonary arteries. 2. Mild diffuse hepatic steatosis. Electronically signed by: Karen English MD (08/24/2020 8:21 PM) [facility] (SALO VILLANUEVA DO) Course & Med Decision Making: Course & Med Decision Making Pertinent Labs and Imaging studies reviewed. (See chart for details) Patient is a 45-year-old female who presented to ER due to left-sided chest pain since yesterday. EKG and cardiac enzyme came back normal so far. Patient had low risk factor for coronary artery disease. Patient is on control medication. Will obtain CTA of the chest to evaluate for PE. Patient care being checked out to the incoming physician at shift change at 6 pm, Dr. Salo Villanueva, pending CT scan result. (NEFTALI FERREIRA DO) [place] Disclaimer: [employer] Disclaimer: This electronic medical record was generated, in whole or in part, using a voice recognition dictation system. (NEFTALI FERREIRA DO) Departure Departure Impression: Primary Impression: Chest pain, unspecified Additional Impression: Elevated BP without diagnosis of hypertension Disposition: HOME / SELF CARE / HOMELESS Condition: STABLE Referrals: KAREN ROMERO MD (PCP) Patient Instructions: Chest Pain (Nonspecific) Additional Instructions: You were seen for chest pain. Your workup did not show any acute abnormalities today, but does not indicate that you do not have underlying cardiovascular disease. You do need to follow up with your primary doctor and/or quantitative researcher for further evaluation and treatment. As discussed, please product picker a blood pressure cuff and keep a dedicated blood pressure log for your primary care physician review in outpatient setting. You should return to the ED if you de velop worsening chest pain, shortness of breath, fever, abnormal sweating, leg swelling, or any other new or concerning symptoms. NEFTALI FERREIRA DO August 24, 2020 17:39 SALO VILLANUEVA DO August 24, 2020 20:33
[2020-08-24] MEDS ORDERED: CONTRAST GIVEN. MC PRN (18:30)
[2020-08-24] MEDS ORDERED: IOHEXOL 350 MG/ML 100 ML VIAL. IV ONE (18:30)
[2020-08-24] MEDS ORDERED: MORPHINE SULFATE 4 MG/ML VIAL. IV ONE (19:30)
--- NOTE | 2020-08-24 19:48 | EKG ---
[facility] [address] [place] [address] Test Date: 2020-08-24 Test Time: 18:59:16 Pat Name: GURWINDER RODRIGUEZ Department: Room: Gender: F Bander Hand: : 1975 Requested By: NEFTALI FERREIRA Order Number: [id number] Reading MD: Measurements Intervals [place] Rate: 97 P: 45 IL: 160 QRS: 59 QRSD: 78 T: 34 QT: 344 QTc: 441 Interpretive Statements SINUS RHYTHM NORMAL ECG RI6.02 Compared to ECG 08/24/2020 16:20:32 Sinus tachycardia no longer present
--- NOTE | 2020-08-24 19:50 | EKG ---
[facility] [address] [place] [address] Test Date: 2020-08-24 Test Time: 16:20:32 Pat Name: GURWINDER RODRIGUEZ Department: Room: Gender: F Systems Qa Analyst: : 1975 Requested By: NEFTALI FERREIRA Order Number: [id number] Reading MD: Measurements Intervals [place] Rate: 102 P: 65 RI: 156 QRS: 76 QRSD: 78 T: 44 QT: 332 QTc: 437 Interpretive Statements SINUS TACHYCARDIA OTHERWISE NORMAL ECG RI6.01 No previous ECG available for comparison
--- NOTE | 2020-08-24 20:23 | RAD ---
Exam: CT of chest with contrast INDICATION: Chest pain, short of air TECHNIQUE: Sequential axial images through the chest obtained following the administration of 80 mL I sovue-370 IV contrast. Sagittal and coronal reformatted images were reconstructed from the axial data and reviewed. 3-D reformatted images were reconstructed from the axial data and reviewed. Exposure: One or more of the following in the visualized dose reduction techniques were utilized for this examination: 1. Automated exposure control 2. Adjustment of the MA and/or KV according to patient size 3. Use of iterative of reconstructive technique Comparisons: Chest x-ray same day FINDINGS: Visualized portions of the thyroid are unremarkable. No enlargement is not lymph nodes are identified . Heart size is normal. No pericardial effusion. Thoracic aorta has a normal course and caliber. Pulmon hever artery is not enlarged. No pulmonary embolus identified within the main, lobar or segmental pulmo nary arteries. Airways are patent. No consolidation or pneumothorax. No suspicious lung nodules. No pleural effusion or thickening. Mild diffuse hepatic steatosis. No suspicious osseous lesions or acute fractures. IMPRESSION: 1. No pulmonary embolus identified within the main, lobar or segmental pulmonary arteries. 2. Mild diffuse hepatic steatosis. Electronically signed by: Karen Smith MD (08/24/2020 8:21 PM) [facility]
[2020-08-24 20:53] VITALS: BP 157/73
== END 2020-08-24 20:55 | disposition home or self-care (01) ==
LOC: ER 16:13
DX: R07.89 Other chest pain (principal); R03.0 Elevated blood-pressure reading, without diagnosis of hypertension; M54.2 Cervicalgia; G43.909 Migraine, unspecified, not intractable, without status migrainosus; Z88.1 Allergy status to other antibiotic agents; Z88.8 Allergy status to other drugs, medicaments and biological substances
CPT/HCPCS: 36415; 71045; 71275; 80053; 83690; 83880; 84484; 84702; 85025; 93005; 96374; 99285; J2270; Q9967

== ENCOUNTER 2020-11-17 23:29 | Emergency (ER) | payer OTHER ==
[~2020-11-17] VITALS: Ht 170.2 cm; Wt 109.0 kg
[~2020-11-17 23:29] MED LIST changes: -OMEP40CA45 PO; +OMEP40CA7 PO
[2020-11-17] MEDS ORDERED: IV NORMAL SALINE 1000ML BAG 1,000 ML IV ONE (23:45)
[2020-11-17] MEDS ORDERED: DEXAMETHASONE SOD PHOS 4 MG/ML VIAL IVP ONE (23:45)
--- NOTE | 2020-11-17 23:51 | PHYS DOC ---
Past Medical History Past Medical History: Migraines, Other Additional Past Medical Histor: CHRON'S,ULCERATIVE COLITIS,ALVAREZ'S ESOPHAGUS,LEAKY HEART VALVE Past Surgical History: Cholecystectomy, Tonsillectomy, Other Additional Past Surgical Histo: EYE SURG,LEEP Smoking Status: Never Smoker Alcohol Use: None Drug Use: None General Adult EDM: Chief Complaint: MULTIPLE COMPLAINTS HPI: HPI: Patient is a 45 year old [f__sex] who presents with [] Review of Systems: Review of Systems: Constitutional: Denies fever or chills Eyes: Denies redness or eye pain HENT: Denies nasal congestion or sore throat Respiratory: Reports cough; denies shortness of breath Cardiovascular: Denies chest pain or palpitations GI: Denies abdominal pain, nausea, or vomiting : Denies dysuria or hematuria Musculoskeletal: Denies back pain or joint pain Integument: Denies rash or skin lesions Neurologic: Reports headache and dizziness; denies focal weakness or sensory changes Complete systems were reviewed and found to be within normal limits, except as documented in this note. Heart Score: C/O Chest Pain: N/A Current Medications: Current Medications Medications (Trade) Dose Ordered Sig/Sánchez Start Time Stop Time Status Last Admin Dose Admin Dexamethasone Sodium Phosphate (Decadron) 10 mg 1X ONCE 11/17/20 23:45 11/17/20 23:46 DC Sodium Chloride 1,000 ml @ 1,000 mls/hr 1X ONCE 11/17/20 23:45 11/18/20 00:44 Allergies: Allergies: Allergies Coded Allergies Type Severity Reaction Last Updated Verified erythromycin base Allergy Intermediate 11/06/19 Yes nitrofurantoin Allergy Intermediate 11/06/19 Yes Physical Exam: PE: Constitutional: Well developed, well nourished, no acute distress, non-toxic appearance HENT: Normocephalic, atraumatic Eyes: PERRL, EOMI, conjunctiva normal, no discharge Neck: Normal range of motion, no tenderness, supple Lungs & Thorax: No respiratory distress, equal chest rise and fall Abdomen: Soft, no tenderness Skin: Warm, dry, no erythema, no rash Back: No tenderness, no CVA tenderness Extremities: No tenderness, ROM intact, no edema Neurologic: Alert and oriented X 3, normal motor function, normal sensory function, no focal deficits noted Psychologic: Affect normal, judgment normal EKG: EKG: @2353 Sinus tachycardia at 103bpm, NO ST elevation, QRS 78ms, QT/QTc 322/424ms Radiology/Procedures: Radiology/Procedures: PROCEDURE: CHEST AP ONLY EXAMINATION: Chest radiograph. VIEWS: Single view COMPARISON: 08/25/2019 INDICATION:45 years, Female, shortness of breath, Covid positive. FINDINGS: Normal cardiomediastinal silhouette. No focal consolidation. No pleural effusion or pneumothorax. No acute osseous process. IMPRESSION: No acute cardiopulmonary process. Electronically signed by: Dacia Raygoza MD (11/18/2020 12:53 AM) [facility] Course & Med Decision Making: Course & Med Decision Making Pertinent Labs and Imaging studies reviewed. (See chart for details) Patient stable for discharge with outpatient follow-up with PCP. Discussed findings and plan with patient, who acknowledges understanding and agreement. COVID-19 CRITERIA: The patient was evaluated during the global COVID-19 pandemic, and that diagnosis was suspected/considered upon their initial presentation. Their evaluation, treatment and testing was consistent with current guidelines for patients who present with complaints or symptoms that may be related to COVID-19. Dragon Disclaimer: DragMyPublisher Disclaimer: This electronic medical record was generated, in whole or in part, using a voice recognition dictation system. Departure Departure Impression: Primary Impression: COVID-19 Disposition: 01 HOME / SELF CARE / HOMELESS Condition: STABLE Referrals: KAREN ROMERO MD (PCP) Patient Instructions: Viral Syndrome Additional Instructions: You have been tested for or diagnosed with COVID-19. It is an infection caused by a new type of coronavirus. COVID-19 will cause cold-like or mild flu symptoms in most. It can cause more severe symptoms like problems breathing in some. There is no treatment for COVID-19. The body will clear the infection over time. Self-care will help to ease discomfort. Steps to Take: Self-Care Rest as needed. Healthy habits may help you feel better. Steps include: Choose healthy foods including fruits and vegetables. Drink water throughout the day. Get plenty of sleep each night. If you smoke, try to quit. It may ease breathing. Avoid alcohol. Keep Others Healthy The virus can spread to others. Droplets are released every time you sneeze or cough. The droplets can get into the mouth, nose, or eyes of people near you and lead to infection. To lower the chances of spreading COVID-19 to others: Stay at home until your doctor has said it is safe to leave. If you tested positive this will mean staying isolated until both of the following are true: At least 7 days have passed since the start of illness. You are free of fever for at least 72 hours without the use of medicine. During this time: - Avoid public areas, events, or transportation. Do not return to work or [facility] until your doctor has said it is safe to do so. - Call ahead if you need to go to a medical center. Let them know you may have COVID-19. It will help them guide you where to go. They may also ask you to wear a facemask when you come to the office. - If you call for emergency medical services, let them know you may have COVID- 19. While at home: - Try to avoid close contact with others. Stay about 6 feet away. - If possible, spend most of your time in a separate room from others. - Use a face mask if you will be in close contact with others such as sharing a room or vehicle. - Have someone wipe down common surfaces in the home. Use household logistician every day on areas like doorknobs, counters, or sinks. - Cough or sneeze into a tissue. Throw the tissue away right after use. If a tissue is not available, cough or sneeze into your elbow. - Wash your hands often. Wash them after sneezing or coughing. Use soap and water and wash for at least 20 seconds. Alcohol based hand vehicle and equipment cleaner can be used if soap and water is not available. - Do not prepare food for others. Avoid sharing personal items like forks, spoons, or toothbrushes. - Avoid close contact with pets while you are sick. There is no evidence of the virus passing to pets. This is a safety step until more is known about this virus. Isolation can be frustrating. Social interaction can help. Keep in touch with friends and family through phone and tech options. You can still interact with others in your home, just keep a safe distance of about 6 feet. Follow-up: Your doctors office will check in with you to see if there are any changes in your health. You may be asked to keep track of symptoms to share with them. They will also let you know when you are clear to be in public again. Problems to Look Out For: Contact your doctor if your recovery is not going as you expect. Get emergency care if you have problems such as: - Trouble breathing - Nonstop chest pain or pressure - Changes in awareness, confusion, or problems waking - Lips or face have bluish color - Worsening of symptoms If you think you have an emergency, call for emergency medical services right away. As taken from [facility] Guaifenesin/Codeine Phosphate (Codeine-Guaifen 10-100 mg/5 ml) 120 Ml Liquid 10 ML PO PRN Q6HRS PRN for cough and congestion MDD 20 Milliliter(s), #200 ML 0 Refills Prov: SHASHA SPAULDING DO 11/18/20 Benzonatate (TESSALON PERLE) 100 Mg Capsule 100 MG PO TID PRN for COUGH, #20 CAP Prov: SHASHA SPAULDING DO 11/18/20 SHASHA SPAULDING DO Nov 17, 2020 23:51
[2020-11-18 00:15] LABS: BASO # 0.1 x10^3/uL (0.0-0.2); BASO % 1 % (0-3); EOS % 1 % (0-3); HEMATOCRIT 39.1 % (36.0-47.0); LYMPH # 1.5 x10^3/uL (1.0-4.8); LYMPH % 22 % (24-48); MEAN CORPUSCULAR HEMOGLOBIN 31 pg (25-35); MEAN CORPUSCULAR HGB CONC 33 g/dL (31-37); MEAN CORPUSCULAR VOLUME 93 fL (79-100); MONO # 0.6 x10^3/uL (0.0-1.1); MONO % 8 % (0-9); NEUT # 4.7 x10^3/uL (1.8-7.7); NEUT % 68 % (31-73); PLATELET COUNT 339 x10^3/uL (140-400); RED BLOOD COUNT 4.22 x10^6/uL (3.50-5.40); RED CELL DISTRIBUTION WIDTH 14.6 % (11.5-14.5); WHITE BLOOD COUNT 6.8 x10^3/uL (4.0-11.0)
[2020-11-18 00:22] LABS: CLARITY,URINE HAZY; COLOR,URINE YELLOW
[2020-11-18 00:27] LABS: CALCIUM 10.1 mg/dL (8.5-10.1); CREATININE 1.1 mg/dL (0.6-1.0); GFR 53.5; POTASSIUM 3.9 mmol/L (3.5-5.1)
[2020-11-18 00:27] LABS: BILIRUBIN,URINE NEGATIVE (NEG); NITRITE,URINE NEGATIVE (NEG); PROTEIN,URINE TRACE mg/dL (NEG-TRACE); UROBILINOGEN,URINE 0.2 mg/dL (0.2 mg/dL)
[2020-11-18 00:29] LABS: BACTERIA,URINE MANY /HPF (0-FEW); RBC,URINE OCC /HPF (0-2)
[2020-11-18 00:32] LABS: ALBUMIN 3.3 g/dL (3.4-5.0); ALBUMIN/GLOBULIN RATIO 0.7 (1.0-1.7); TOTAL BILIRUBIN 0.3 mg/dL (0.2-1.0); TOTAL PROTEIN 8.1 g/dL (6.4-8.2)
[2020-11-18] MEDS ORDERED: GUAI120L35 PO (00:54)
[2020-11-18] MEDS ORDERED: BENZ100C PO (00:54)
--- NOTE | 2020-11-18 00:55 | RAD ---
EXAMINATION: Chest radiograph. VIEWS: Single view COMPARISON: 08/25/2019 INDICATION:45 years, Female, shortness of breath, Covid positive. FINDINGS: Normal cardiomediastinal silhouette. No focal consolidation. No pleural effusion or pneumothorax. No acute osseous process. IMPRESSION: No acute cardiopulmonary process. Electronically signed by: Dacia Raygoza MD (11/18/2020 12:53 AM) [facility]
[2020-11-18 01:05] LABS: CREATINE KINASE 47 U/L (26-192)
[2020-11-18 01:07] VITALS: BP 132/70
--- NOTE | 2020-11-18 03:45 | EKG ---
[facility] [address] [place] [address] Test Date: 2020-11-17 Test Time: 23:53:23 Pat Name: GURWINDER RODRIGUEZ Department: Room: Gender: F Manager Library: : 1975 Requested By: SHASHA SPAULDING Order Number: [id number] Reading MD: Measurements Intervals [place] Rate: 103 P: 62 PA: 154 QRS: 76 QRSD: 78 T: 51 QT: 322 QTc: 424 Interpretive Statements SINUS TACHYCARDIA QRS(T) CONTOUR ABNORMALITY CONSIDER ANTEROLATERAL MYOCARDIAL DAMAGE POSSIBLY ABNORMAL ECG RI6.01 Compared to ECG 11/17/2020 23:48:48 No significant changes
== END 2020-11-18 01:30 | disposition home or self-care (01) ==
LOC: ER 23:29
DX: U07.1 COVID-19 (principal); G43.909 Migraine, unspecified, not intractable, without status migrainosus; Z88.1 Allergy status to other antibiotic agents; Z88.3 Allergy status to other anti-infective agents
CPT/HCPCS: 36415; 71045; 80053; 81001; 81025; 82553; 83605; 83735; 84484; 85025; 87086; 93005; 96361; 96374; 99285; J1100; J7030

== ENCOUNTER → 2021-07-24 | Day surgery (SDC) | payer OTHER ==
[~2021-07-24] VITALS: Ht 170.2 cm; Wt 118.0 kg
[~2021-07-24] MED LIST changes: +BENZ100C PO; +GUAI120L35 PO; +IV RINGERS,LACTATED 1000ML 1,000 ML IV SCH; +PROPOFOL 10 MG/ML (20ML) VIAL. IV ONE
[2021-07-24 09:41] VITALS: BP 202/106
[2021-07-24 10:54] VITALS: BP 106/62
--- NOTE | 2021-07-25 15:33 | PATHOLOGY ---
[facility] Accession Number: [id number] . 01 Material submitted: . PART A: ileum - TERMINAL ILEUM BIOPSY PART B: cecum - CECUM BIOPSY PART C: colon - ASCENDING COLON BIOPSY. Modifiers: ascending PART D: colon - TRANSVERSE COLON BIOPSY. Modifiers: transverse PART E: colon - DESCENDING COLON BIOPSY. Modifiers: descending PART F: sigmoid colon - SIGMOID COLON BIOPSY. Modifiers: sigmoid PART G: rectum - RECTAL BIOPSY . 01 Clinical history: . HX CROHN'S . 02 Diagnosis: A. 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 . B. Cecal biopsies: - Segments of colonic mucosa showing no evidence of an active chronic destructive colitis. . C. Ascending colon biopsies: - Segments of colonic mucosa showing no evidence of an active chronic destructive colitis. . D. Transverse colon biopsies: - Segments of colonic mucosa showing a single small focus of superficial active colitis and no evidence of an active chronic destructive colitis. . E. Descending colon biopsies: - Segments of colonic mucosa showing no evidence of an active chronic destructive colitis. . F. Sigmoid colon biopsies: - Segments of colonic mucosa showing no evidence of an active chronic destructive colitis. . F. Rectal biopsies: - Segments of rectal mucosa showing no evidence of an active chronic destructive colitis. (JPM:alexis; 07/25/2021) [facility] 07/25/2021 [facility] Local . 02 Comment: Sections of the terminal ileum, colonic, and rectal biopsies show no evidence of an active chronic destructive colitis. Sections of the transverse colon biopsy reveal a single mucosal segment which shows a small focus of acute inflammation within the superficial lamina propria. There is no dysplasia or evidence of malignancy. (JPM:pit; 07/25/2021) . 02 Electronically signed: . Carlos Lozano MD, Pathologist NPI- [id number] . 01 Gross description: . A. The specimen is received in formalin, labeled "Vogts, Marimar, terminal ileum bx" and consists of multiple shultz irregular tissues aggregating 0.7 x 0.7 x 0.1 cm which are submitted in toto in A1. . B. The specimen is received in formalin, labeled "Vogts, Marimar, cecum BX" and consists of multiple shultz irregular tissues aggregating 1.0 x 0.4 x 0.1 cm which are filtered and submitted in toto in B1. . C. The specimen is received in formalin, labeled "Vogts, Marimar, ascending colon BX" and consists of multiple shultz irregular tissues aggregating 0.7 x 0.4 x 0.1 cm which are submitted in toto in C1. . D. The specimen is received in formalin, labeled "Vogts, Marimar, transverse colon bx" and consists of multiple shultz irregular tissues aggregating 0.5 x 0.5 x 0.1 cm which are submitted in toto in D1. . E. The specimen is received in formalin, labeled "Vogts, Marimra, descending colon bx" and consists of multiple shultz irregular tissues aggregating 0.6 x 0.4 x 0.1 cm which are submitted in toto in E1. . F. The specimen is received in formalin, labeled "Vogts, Marimar, sigmoid colon BX" and consists of multiple shultz irregular tissues aggregating 0.7 x 0.5 x 0.1 cm which are filtered and submitted in toto in F1. . G. The specimen is received in formalin, labeled "Vogts, Marimar, rectal BX" and consists of 3 shultz irregular tissues aggregating 0.5 x 0.5 x 0.2 cm which are submitted in toto in G1. (CABAZON; 07/24/2021) DKA/DKA 07/24/2021 1531 Local . 02 Pathologist provided ICD-10: R59.9, K52.9, Z87.19 . 02 CPT . 048673, 122565, 297579, 920292, 803210, [id number], [id number] Specimen Comment: A courtesy copy of this report has been sent to [phone], [phone] Specimen Comment: [id number] Specimen Comment: Report sent to / DR ROMERO Specimen Comment: A duplicate report has been generated due to demographic updates. Performed at: [address] [facility] [id number] MD Tyrone Ernst MD Phone: [phone] Performed at: [facility] [address] [place], [place] [id number] MD Carlos Lozano MD Phone: [phone]
== END | disposition home or self-care (01) ==
LOC: ENDOS 09:20
PROVIDERS: ATTEND Internal Medicine Gastroenterology
DX: K50.00 Crohn's disease of small intestine without complications (principal); K52.3 Indeterminate colitis; K64.0 First degree hemorrhoids; E66.3 Overweight; K63.89 Other specified diseases of intestine; J45.909 Unspecified asthma, uncomplicated; K21.9 Gastro-esophageal reflux disease without esophagitis; F41.9 Anxiety disorder, unspecified; F32.9 Major depressive disorder, single episode, unspecified; M19.90 Unspecified osteoarthritis, unspecified site; Z87.440 Personal history of urinary (tract) infections; Z79.899 Other long term (current) drug therapy; Z98.890 Other specified postprocedural states; Z90.49 Acquired absence of other specified parts of digestive tract; Z88.1 Allergy status to other antibiotic agents; Z88.8 Allergy status to other drugs, medicaments and biological substances
CPT/HCPCS: 45380; 81025; 88305; J2704